=== PATIENT | female | born 1945 | race Caucasian/White ===

== ENCOUNTER → 2017-12-13 12:42 | Outpatient (CLI) | payer MEDICARE, SELFPAY ==
--- NOTE | 2017-12-13 12:46 | CT_ITS ---
STUDY: CT CHEST WITHOUT CONTRAST REASON FOR EXAM: Female, 72 years old. History of breast cancer RADIATION DOSAGE (If Supplied By Facility): CTDIvol = ( 13.37 ) mGy, DLP = ( 441.14 ) mGycm TECHNIQUE: Transaxial imaging was performed without the administration of intravenous contrast material. Individualized dose optimization techniques were used for this CT. COMPARISON: September 05, 2017 FINDINGS: There is minor atelectasis within the dependent portion of the lungs. There is mild round atelectasis within the posterior medial segment of the right lower lobe. Tiny calcified granuloma in the right lung base. There is no demonstrated pleural abnormality. The heart is enlarged and there is multivessel coronary artery calcification.. Normal mediastinum. Multiple bilateral calcified hilar nodes. Normal unenhanced pulmonary arteries. Atherosclerotic changes of the aorta. There is aneurysmal dilatation of proximal aorta measuring approximately 4.6 x 4.35 cm. Dorsal spine demonstrates moderate spondylosis. Postsurgical changes status post right mastectomy Multiple granulomatous calcifications are seen within the spleen.. No significant change since previous study CT/Chest without Contrast IMPRESSION: Persistent round atelectasis in the posterior medial segment of the right lower lobe. Old granulomatous disease. No evidence to suggest presence of metastatic disease status post right mastectomy Electronically Signed: Olvin Bradley MD at 21:39 EST , Service support ,
--- NOTE | 2017-12-13 15:35 | RAD_ITS ---
STUDY: X-RAY - LEFT KNEE REASON FOR EXAM: Female, 72 years old. Pain TECHNIQUE: 4 view(s) of the knee. COMPARISON: None. FINDINGS: Normal visualized distal femur. Normal visualized proximal tibia and fibula. Normal proximal tibiofibular articulation. Mildly narrowed medial femorotibial compartment. Normal lateral femorotibial compartment. Normal patellofemoral articulation. The soft tissue structures are unremarkable. RAD/Knee 4 or More Views IMPRESSION: Mild degenerative changes. No evidence for acute fracture Electronically Signed: Olvin Bradley MD at 16:24 EST , Service support ,
--- NOTE | 2017-12-13 15:35 | RAD_ITS ---
STUDY: X-RAY - ABDOMEN/PELVIS REASON FOR EXAM: Female, 72 years old. Pain and distention TECHNIQUE: 3 images COMPARISON: None. FINDINGS: Normal visualized lung bases. There is an unremarkable bowel gas pattern. There is no demonstrated free abdominal air. The visualized liver, spleen and kidneys are grossly normal in size and morphology. There are surgical clips in left upper and left lower quadrants. There are postsurgical changes of the lumbar spine. RAD/Abd Inc Decub and/or Erect IMPRESSION: Nonspecific abdomen Electronically Signed: Olvin Bradley MD at 16:26 EST , Service support ,
== END ==
PROVIDERS: Family Provider Family Medicine Geriatric Medicine; PCP Family Medicine Geriatric Medicine; Visit Provider Nurse Practitioner Acute Care
DX: R91.8 Other nonspecific abnormal finding of lung field (principal); K59.00 Constipation, unspecified; M17.12 Unilateral primary osteoarthritis, left knee
CPT/HCPCS: 71250; 73564; 74019

== ENCOUNTER 2018-01-10 10:30 | Day surgery (SDC) | payer MEDICARE, SELFPAY ==
--- NOTE | 2018-01-08 13:14 | EKG12_ITS ---
Test Reason : PRE OP Blood Pressure : / mmHG Vent. Rate : 067 BPM Atrial Rate : 067 BPM P-R Int : 152 ms QRS Dur : 092 ms QT Int : 416 ms P-R-T Axes : 051 -06 017 degrees QTc Int : 439 ms Sinus rhythm with occasional Premature ventricular complexes Otherwise normal ECG Confirmed by SP SWAIN, OLIVE ([id number]), publication editor MILES DAWSON ([id number]) on 01/09/2018 1:16:17 PM Referred By: Ugo Tabor Confirmed By:OLIVE SNOWDEN MD
[2018-01-08 15:40] LABS: Hematocrit 31.2 % (37-47); Hemoglobin 9.6 g/dl (12.0-15.0); Mean Corp Hgb Conc 30.8 g/gl (32-36); Mean Corpuscular Hgb 25.5 pg (27.0-32.0); Mean Corpuscular Volume 82.8 fL (81-99); Mean Platelet Vol. 12.1 fl (6.2-12.0); Platelet Count 310 K/mm3 (150-450); RBC Distribution Width CV 18.2 % (11.6-14.6); RBC Distribution Width SD 53.4 fl (35.1-43.9); Red Blood Count 3.77 M/mm3 (4.2-5.4); White Blood Count 10.4 K/mm3 (4.4-11.0)
[2018-01-08 15:47] LABS: Partial Thromboplast Time 24.5 Seconds (24.1-36.2); Prothrombin Time (Protime)PT. 12.7 SECONDS (11.7-14.9)
[2018-01-08 15:48] LABS: Scan Indicated on CBC? Y/N NO
[2018-01-08 16:23] LABS: Thyroid Stim Hormone (TSH) 2.27 uIU/mL (0.358-3.74)
[2018-01-10] VITALS (9 sets, daily range): BP systolic 141–180; BP diastolic 74–92; PULSE 65–76; RESP 16–22; TEMP 36.3–36.8; O2SAT 85–95; BMI 32.9
[2018-01-10 11:11] LABS: Bedside Glucose 106 mg/dL (70-110)
--- NOTE | 2018-01-10 12:55 | BREAST_PTH ---
PATIENT: JOYCE DAUGHERTY [place] [facility] [place][id number] AGE/SX: 72/F ROOM: RE01/10/[address]: Dr. Ugo Tabor MD : 1945 BED: DIS: 01/10/2018 SPEC #: [id number] RECD: 01/10/18 15:47 STATUS: SHANTA AMANDA #: [id number] CESAR: 01/10/18 12:[address]: Ugo Tabor DEPT: SURGICAL PATHOLOGY RECD BY: Jatinder Samuel ENTERED: 01/11/18 11:58 SP TYPE: BREAST OTHR DR: Dr. Jorge Linares MD Tissues: Right breast, NOS Procedures: Surgery Specimen Level IV HEADER OPERATION: Right chest seroma debridement/drainage PRE-OP DIAGNOSIS: Postoperative seroma right breast; CA right breast TISSUE SUBMITTED: Old scar, seroma cavity right breast MICROSCOPIC DIAGNOSIS Old scar, seroma cavity right breast: Fragments of fibroadipose and skeletal muscle tissue with focal fat necrosis, chronic inflammation, foreign body giant cell reaction and granulation tissue reaction, clinically seroma cavity. Skin, dermal fibrosis consistent with scar. SJ:israel 01/14/18 MICROSCOPIC DESCRIPTION Slides are reviewed. GROSS DESCRIPTION Received in fixative is one container labeled with the patient's name and designated old scar, right breast. The specimen consists of multiple irregular fragments of walker-yellow fibrofatty tissue ranging in size from 1.2 cm to 14 cm. The larger fragment consists of a well-healed cutaneous scar with skin and attached fibrofatty tissue. Serial sections do not reveal mass lesions. Medical Device Sales Consultant sections are submitted in four cassettes. / AM:israel 01/11/18 TC:5 CPT: 74500
--- NOTE | 2018-01-10 14:49 | PCM.OPRPT ---
Problem List (1) Seroma complicating a procedure Status: Acute Report of Operation Date of Procedure: 01/10/18 Pre-Operative Diagnosis: Postmastectomy right chest seroma Post-Operative Diagnosis: Same Surgery/Procedure Performed:: Right chest wall seroma debridement Description of Surgical Findings:: Timeout and informed consent was obtained. 72-year-old female was taken out from. Based upon the table. General general anesthesia. Ancef 2 g given intravenous preoperatively. The right chest were sterilely prepped and draped. The right arm was placed at right angles to the table and carefully protected with soft roll. The previous right mastectomy incision was transversely elliptically completely excised. Seroma fluid was collected and sent for Gram stain culture and sensitivity. The entire incision was reopened. The seroma lining was then sharply excised using majority electrocautery. The vast majority of the seroma lining was excised and were not possible it was then definitively cauterized. Hemostasis was intact. Blood loss was minimal. The entire space measured approximately 20 x 15 cm. Then a stab incision was made inferior lateral to the wound. A 15 round ROSIE drain was exited and secured there with interrupted 3-0 nylon. The superior and inferior skin flaps were then approximated to the chest wall with multiple interrupted 3-0 Vicryl sutures. The axillary area was treated with topical Tisseel. All portions of the wound were treated with Aramis. The subdermal tissues continue to be approximated with interrupted 3-0 Vicryl. Skin edges with the same. Steri-Strips Telfa soft roll dressing applied. Sponge instrument and needle counts were reported the surgeon to be correct. Blood loss minimal specimens include the skin scar and these debrided seroma lining. There were no apparent complications she was taken to the recovery satisfactory condition. Drains #15 ROSIE round Specimens include the skin scar and seroma cavity Blood loss minimal Ugo Tbaor M.D., F.A.C.S. Tisseel was used was fibrin sealant 2 mm V and [id number] with an expiration date of 01/02/2019. There is still used was lot #[id number]. Reference number NS [id number] and expiry date of September 24, 2022 Type of Anesthesia:: General
--- NOTE | 2018-01-10 14:53 | OP.PCM_ITS ---
Problem List (1) Seroma complicating a procedure Status: Acute Report of Operation Date of Procedure: 01/10/18 Pre-Operative Diagnosis: Postmastectomy right chest seroma Post-Operative Diagnosis: Same Surgery/Procedure Performed:: Right chest wall seroma debridement Description of Surgical Findings:: Timeout and informed consent was obtained. 72-year-old female was taken out from. Based upon the table. General general anesthesia. Ancef 2 g given intravenous preoperatively. The right chest were sterilely prepped and draped. The right arm was placed at right angles to the table and carefully protected with soft roll. The previous right mastectomy incision was transversely elliptically completely excised. Seroma fluid was collected and sent for Gram stain culture and sensitivity. The entire incision was reopened. The seroma lining was then sharply excised using majority electrocautery. The vast majority of the seroma lining was excised and were not possible it was then definitively cauterized. Hemostasis was intact. Blood loss was minimal. The entire space measured approximately 20 x 15 cm. Then a stab incision was made inferior lateral to the wound. A 15 round ROSIE drain was exited and secured there with interrupted 3-0 nylon. The superior and inferior skin flaps were then approximated to the chest wall with multiple interrupted 3-0 Vicryl sutures. The axillary area was treated with topical Tisseel. All portions of the wound were treated with Aramis. The subdermal tissues continue to be approximated with interrupted 3-0 Vicryl. Skin edges with the same. Steri- Strips Telfa soft roll dressing applied. Sponge instrument and needle counts were reported the surgeon to be correct. Blood loss minimal specimens include the skin scar and these debrided seroma lining. There were no apparent complications she was taken to the recovery satisfactory condition. Drains #15 ROSIE round Specimens include the skin scar and seroma cavity Blood loss minimal Ugo Tabor M.D., F.A.C.S. Tisseel was used was fibrin sealant 2 mm V and [id number] with an expiration date of 01/02/2019. There is still used was lot #[id number]. Reference number NS [id number] and expiry date of September 24, 2022 Type of Anesthesia:: General
--- NOTE | 2018-01-10 14:54 | PCM.DC.GS ---
Discharge Diet: Light diet - advance as tolerated - if you have questions about your diet instructions, please talk to you doctor. Discharge Activity: May Not Drive - for 1 week or while taking narcotic pain medicine. May shower in (days): 6 - After drain is removed Lifting Restrictions: 10 pounds Call your doctor if your incision/area has: Continuous Slow Oozing, Sudden Increased Bleeding, Increased Pain/ Swelling, Increased Redness, Foul Smelling Discharge Call your doctor if you observe: Fever of 101 or Higher Suture Line Care: Avoid Pulling/Pushing, Avoid Pinching/Bending Additional Dressing/Incision Instructions:: You may change the dressing daily and cleanse the drain site with a Q-tip and peroxide and then apply dry gauze. Allergies/Adverse Reactions: Allergies Iodinated Contrast- Oral and IV Dye Allergy (Verified 01/01/18 15:27) Hives zolpidem [From Ambien] Adverse Reaction (Severe, Verified 01/01/18 15:27) Other severe confusion Medications to take at Discharge Metformin HCl [Glucophage] 500 mg PO BIDCM 09/08/13 Metoprolol Tartrate [Lopressor (beta dandre)] 25 mg PO DAILY 09/08/13 Montelukast [Singulair] 10 mg PO QHS 09/08/13 Aspirin E.C. [Ecotrin] 81 mg PO QHS 01/30/14 Nilotinib HCl [Tasigna] 300 mg PO BID 01/30/14 Potassium Chloride [K-Dur] 20 meq PO BID 11/05/16 diclofenac potassium 50 mg tablet 50 mg PO BID 10/23/17 levothyroxine 112 mcg capsule 112 mcg PO DAILY cap 10/23/17 pregabalin 300 mg capsule 200 mg PO BID cap 12/14/17 Atorvastatin Calcium [Lipitor] 80 mg PO QHS 01/01/18 Calcium Carbonate [Calcium] 600 mg PO DAILY 01/01/18 Ergocalciferol [Vitamin D] 50,000 unit PO DAILY 01/01/18 Ferrous Gluconate [Iron] 150 mg PO DAILY 01/01/18 Furosemide [Lasix] 20 mg PO DAILY 01/01/18 Levomefolate/B6/B12/Algal Oil [Metanx Capsule] 1 each PO DAILY 01/01/18 Omeprazole 40 mg PO DAILY 01/01/18 Primary Care Physician: Jorge Linares Chi, MD [Primary Care Provider] - Please Follow Up With: Ugo Tabor MD - [phone] When: Call to make an appointment to be seen on Sunday please
[2018-01-10 15:26] LABS: Bedside Glucose 114 mg/dL (70-110)
[2018-01-10] MEDS: Ipratropium/Albuterol Sulfate 3 ML AMPUL.NEB INHALATION (16:00)
== END 2018-01-10 18:04 | disposition home or self-care (01) ==
LOC: SDC 10:31 → AC 10:31
PROVIDERS: Family Provider Family Medicine Geriatric Medicine; PCP Family Medicine Geriatric Medicine; Visit Provider Surgery
PROC: (CPT 19020; principal; 2018-01-10 12:45)
DX: L76.34 Postprocedural seroma of skin and subcutaneous tissue following other procedure (principal); C92.10 Chronic myeloid leukemia, BCR/ABL-positive, not having achieved remission; Z85.3 Personal history of malignant neoplasm of breast; Z90.13 Acquired absence of bilateral breasts and nipples; I12.9 Hypertensive chronic kidney disease with stage 1 through stage 4 chronic kidney disease, or unspecified chronic kidney disease; E11.22 Type 2 diabetes mellitus with diabetic chronic kidney disease; N18.3 Chronic kidney disease, stage 3 (moderate); E11.65 Type 2 diabetes mellitus with hyperglycemia; E11.42 Type 2 diabetes mellitus with diabetic polyneuropathy; Z79.84 Long term (current) use of oral hypoglycemic drugs; M19.90 Unspecified osteoarthritis, unspecified site; E66.9 Obesity, unspecified; Z68.34 Body mass index [BMI] 34.0-34.9, adult; E03.9 Hypothyroidism, unspecified; G47.33 Obstructive sleep apnea (adult) (pediatric); E78.00 Pure hypercholesterolemia, unspecified; K21.9 Gastro-esophageal reflux disease without esophagitis; D64.9 Anemia, unspecified; Z79.82 Long term (current) use of aspirin; J45.909 Unspecified asthma, uncomplicated; I71.9 Aortic aneurysm of unspecified site, without rupture; Z79.899 Other long term (current) drug therapy
CPT/HCPCS: 19020; 36415; 82962; 84443; 85027; 85610; 85730; 87070; 87075; 87205; 88305; 88307; 93005; 94640; J3010; J7120; J2405

== ENCOUNTER → 2018-01-21 10:07 | Outpatient (CLI) | payer MEDICARE, SELFPAY | PROVIDERS: Family Provider Family Medicine Geriatric Medicine; PCP Family Medicine Geriatric Medicine; Visit Provider Surgery | DX: L76.34 Postprocedural seroma of skin and subcutaneous tissue following other procedure (principal) | CPT/HCPCS: 87070; 87075; 87077; 87186; 87205 ==

== ENCOUNTER → 2018-02-08 12:40 | Outpatient (CLI) | payer MEDICARE, SELFPAY ==
--- NOTE | 2018-02-08 12:43 | RAD_ITS ---
STUDY: X-RAY CHEST REASON FOR EXAM: Female, 73 years old. Shortness of breath. TECHNIQUE: PA and lateral views of the chest. COMPARISON: CT of the chest dated December 13, 2017. FINDINGS: The lungs are expanded. There is interstitial thickening present in both lungs. Sequela of radiation therapy. Appears be heterogeneous groundglass attenuation and curvilinear opacities of the left lung base. There is no demonstrated pleural abnormality. There is mild cardiac enlargement. There are calcified mediastinal and hilar lymph nodes. Normal visualized pulmonary arteries. There is atherosclerotic calcification of the aortic arch with tortuosity. There is demineralization of the osseous structures. There is an increased kyphosis of the thoracic spine. Patient has had previous surgery of the lumbar spine. Normal visualized ribs, clavicles, and shoulders. Surgical clips are visible in the epigastric area. There are also surgical clips within the left breast. RAD/Chest PA and Lateral IMPRESSION: 1. Chronic left basilar opacities, similar to previous CT. This is probably related to pulmonary fibrosis and possible sequela of radiation therapy. 2. No radiographic evidence of acute cardiopulmonary disease. Electronically Signed: Niharika Kimball MD at 9:32 EDT , Service support ,
[2018-02-08 13:37] LABS: Absolute Lymphocyte Count 2.53 X10^3/ul (0.83-4.51); Absolute Neutrophil Count 5.5 X10^3/uL (2.0-7.7); Basophil# 0.05 X10^3/uL; Basophil% 0.5 % (0-1); Eosinophil# 0.44 X10^3/uL; Eosinophils% 4.7 % (0-5); Hematocrit 32.7 % (37-47); Lymphocyte # 2.53 X10^3/ul (4.0); Lymphocyte % 26.9 % (19-41); Mean Corp Hgb Conc 30.6 g/gl (32-36); Mean Corpuscular Hgb 24.9 pg (27.0-32.0); Mean Corpuscular Volume 81.5 fL (81-99); Mean Platelet Vol. 11.3 fl (6.2-12.0); Monocyte# 0.79 X10^3/uL; Monocyte% 8.4 % (0-10); Neutrophil # 5.53 X10^3/uL (2.7-7.7); Platelet Count 305 K/mm3 (150-450); RBC Distribution Width CV 19.4 % (11.6-14.6); RBC Distribution Width SD 57.1 fl (35.1-43.9); Red Blood Count 4.01 M/mm3 (4.2-5.4); White Blood Count 9.4 K/mm3 (4.4-11.0)
[2018-02-08 13:38] LABS: POSITIVE COUNT NO; POSITIVE DIFFERENTIAL NO; POSITIVE MORPHOLOGY NO
[2018-02-08 13:49] LABS: Prothrombin Time (Protime)PT. 12.7 SECONDS (11.7-14.9)
[2018-02-08 13:58] LABS: Anion Gap 7 (5-15); BUN 25 mg/dL (7-18); BUN/Creat Ratio 15.5 RATIO (10-20); Calcium,Total 8.8 mg/dL (8.5-10.1); Chloride 112 mmol/L (98-107); Creatinine, Serum 1.61 mg/dL (0.55-1.02); EST Glomerular Filtration Rate 33 mL/min (>60); Est Glom Filt Rate - Afr Amer 40 mL/min (>60); Glucose 98 mg/dL (74-106); Potassium 4.4 mmol/L (3.5-5.1); Sodium Level 146 mmol/L (136-145)
== END ==
PROVIDERS: Family Provider Family Medicine Geriatric Medicine; PCP Family Medicine Geriatric Medicine; Visit Provider Internal Medicine Cardiovascular Disease
DX: I77.810 Thoracic aortic ectasia (principal); I35.1 Nonrheumatic aortic (valve) insufficiency; I10 Essential (primary) hypertension
CPT/HCPCS: 36415; 71046; 80048; 85025; 85610

== ENCOUNTER → 2018-02-12 14:36 | Outpatient (CLI) | payer MEDICARE, SELFPAY ==
--- NOTE | 2018-02-12 14:37 | ECHOD_ITS ---
Reason For Study: AV disorder Procedure This was a 2D Doppler, Color Flow transthoracic echocardiogram. Exam performed in department. Left Ventricle Normal size and thickness. The estimated ejection fraction is 55 %. Stage 1 diastolic dysfunction. No regional wall motion abnormalities noted. There is mild global hypokinesis of the left ventricle. Right Ventricle Normal size and thickness. Normal systolic function. Atria Normal left atrium. Normal right atrium. Normal atrial septum. Mitral Valve The mitral valve is structurally normal. No prolapse or stenosis seen. Trivial mitral valve insufficiency. Tricuspid Valve Normal tricuspid valve. Trivial tricuspid valve insufficiency. Right ventricular systolic pressure estimated to be 27 mmHg. Aortic Valve Trisinus/trileaflet aortic valve. Mild diffuse aortic valve thickening. There is no aortic stenosis. Mild (1+) aortic valve insufficiency. Pulmonic Valve Normal pulmonic valve. Trivial pulmonic valve insufficiency. Great Vessels Normal aortic root. Normal arch. Normal inferior vena cava. Inferior vena cava collapse with sniff. Pericardium/Pleural No pericardial effusion. MMode/2D Measurements & Calculations LVIDd: 5.6 cm IVSd: 0.95 cm Ao root diam: 3.8 cm LVIDs: 3.9 cm LVPWd: 1.1 cm LA dimension: 4.2 cm RVDd: 2.2 cm FS: 30.2 % LAV(MOD-bp): 66.0 ml LA A4 area: 20.8 cm2 RA A4 area: 10.7 cm2 LAV(MOD-bp) Indexed: 36.7 ml/m2 LAV(MOD-sp2): 64.5 ml LAV(MOD-sp4): 66.3 ml Doppler Measurements & Calculations MV E max marino: 86.4 cm/sec Lat Peak E' Marino: 5.1 cm/sec Med Peak E' Marino: 5.4 cm/sec MV A max marino: 109.2 cm/sec E/E' lat: 16.9 E/E' med: 15.9 MV E/A: 0.79 Ao V2 max: 150.2 cm/sec AI max marino: 408.7 cm/sec LV V1 max: 102.3 cm/sec Ao max P.0 mmHg AI max P.9 mmHg LV V1 max P.2 mmHg AI dec slope: 196.9 cm/sec2 AI P1/2t: 608.1 msec PA V2 max: 84.2 cm/sec TR max marino: 235.7 cm/sec TR max P.2 mmHg Interpretation Summary The estimated ejection fraction is 55 %. Stage 1 diastolic dysfunction. There is mild global hypokinesis of the left ventricle. Trivial mitral valve insufficiency. Trivial tricuspid valve insufficiency. Right ventricular systolic pressure estimated to be 27 mmHg. Mild (1+) aortic valve insufficiency. Compared to echo report dated 07/13/2017, no appreciable changes noted. Aortic root has remained the same. Ordering Physician: Rustam Joseph Referring Physician: Jorge Linares Chi Performed By: Socorro Turpin RDCS, RVT
== END ==
PROVIDERS: Family Provider Family Medicine Geriatric Medicine; PCP Family Medicine Geriatric Medicine; Visit Provider Internal Medicine Cardiovascular Disease
DX: I35.1 Nonrheumatic aortic (valve) insufficiency (principal)
CPT/HCPCS: 93306

== ENCOUNTER → 2018-02-15 07:18 | Day surgery (SDC) | payer MEDICARE, SELFPAY ==
[2018-02-14 08:50] VITALS: BMI 32.4
[2018-02-15 10:45] LABS: Blood Gas Specimen Type VEN; VBG BASE EXCESS -2 mmol/L (-1.0-3.5); VBG Bicarbonate 22 mmol/L (22-26); VBG Oxygen Content 23 mmol/L (23-33); VBG PO2 33 mmHg (25-40); VBG SO2 66 % (50-70); VBG pCO2 32.8 mmHg (41-51); VBG pH 7.43 (7.32-7.42)
[2018-02-15 10:46] LABS: Base Excess -2 mmol/L (-2 to +2); Blood Gas Specimen Type ART; PO2 36 mmHG (75-100); SO2 72 % (95-99); Total Carbon Dioxide 23 mmol/L; pCO2 33.2 mmHg (35-45); pH 7.43 (7.35-7.45)
[2018-02-15 10:46] LABS: Base Excess -3 mmol/L (-2 to +2); Bicarbonate 21.5 mmol/L (22-26); Blood Gas Specimen Type ART; PO2 56 mmHG (75-100); SO2 90 % (95-99); Total Carbon Dioxide 22 mmol/L; pCO2 30.9 mmHg (35-45); pH 7.45 (7.35-7.45)
--- NOTE | 2018-02-15 15:19 | CL.D_ITS ---
Patient Name: JOYCE MONK Study Date: 02/15/2018 Performing: Rustam Joseph MD Ht: 62.99 inches 160 cm : 1945 Wt: 182.98 lbs 83 kg Age: 73 Gender: female BSA: 1.86 PROCEDURE(S) PERFORMED BI02-MSX/LHC/COR/LV CLINICAL PROFILE AND INDICATIONS Indications: Valvular Disease, LV Dysfunction Heart Failure: NYHA Class: 2 Stress/Imaging Stress Echocardiogram: Yes Result: NegativeStress Echocardiogram: Negative Angina Classification Anginal Classification w/in 2 Weeks: No symptoms CAD Presentations: Other: dyspnea on exertion. Comorbidities/Risk Factors: Hypertension Dyslipidemia CONCLUSIONS Normal coronary arteries Global LV systolic dysfunction- Mild The patient has normal pulmonary hemodynamics. RECOMMENDATIONS PFTs to evaluate VELEZ and low O2. Management as per referring Dumbwaiter Operator DESCRIPTION OF PROCEDURE The patient arrived to the procedure lab. The risks and benefits of the procedure as well as a full d escription of our services here and current unavailability of surgical backup were fully explained to the patient and/or their significant other prior to the catheterization. The Timeout was completed, verifying the correct patient and procedure. The patient's procedural site was prepped and draped in the usual fashion. Local anesthetic was given subcutaneously to right groin region with Lidocaine 2%. Using a modified Seldinger technique, arterial access was obtained via the right femoral artery, a 4 Fr sheath was inserted Venous access was obtained via the right femoral vein, a 7Fr sheath was insert ed. A 7Fr thermal dilution catheter was inserted and right heart pressures were recorded, it was then advanced to PA position for cardiac outputs. Thermal dilution cardiac outputs were then recorded. O2 saturations were then obtained. The Thermal dilution catheter was then removed. Left Ventriculograph y was performed in JOHNSON projection using a 4 Fr. Pigtail catheter. LV to AO pullback pressures were th en recorded. Simultaneous pressures were then recorded. Left Coronary Artery selective angiography wa s performed in multiple views using a 4 Fr. JL5 catheter. Right Coronary Artery selective angiography was then performed in multiple views using a 4 Fr. 3DRC catheter.The arterial sheath was pulled and manual compression applied until hemostasis is achieved.. The venous sheath was then pulled and manua l compression applied until hemostasis achieved CORONARY ANGIOGRAPHY DOMINANCE: Right Dominant LEFT HEART ASSESSMENT Left Ventricular Ejection Fraction: by LV Gram 45-50 % Global Hypokinesis - Mild Depressed Left Ventricular systolic function Elevated Left Ventricular End Diastolic Pressure RIGHT HEART ASSESSMENT Thermal CO: 6.06 Thermal CI: 3.26 Emmanuelle CO: 8.66 Emmanuelle CI: 4.66 PW: 14 PA: 32/15 22 RV: 31/5 8 RA: 08/15 7 PVR: 106 SVR: 1241 LEFT MAIN: Angiographically normal LEFT ANTERIOR DECENDING ARTERY: Angiographically normal CIRCUMFLEX ARTERY: Angiographically normal RIGHT CORONARY ARTERY: Angiographically normal COMPLICATIONS No Complications PROCEDURE MEDICATIONS Oxygen: 2 L/min via nasal cannula Benadryl 25 mg IV @ 02/15/2018 10:15:42 Pepcid 20 mg IV 02/15/2018 10:15:55 Solu-cortef 100 mg IV 02/15/2018 10:16:13 SUMMARY OF HEMODYNAMIC DATA Time AIR REST ECG 07:42:03 RA 08/15 (7) SV 10:27:43 RV 31/5, 8 10:27:55 PW (14) PV 10:28:26 PA 32/15 (22) PA 10:28:35 LV 150/-12, 9 10:33:07 LV 146/-12, 10 10:33:15 LV 142/-13, 9 10:34:00 PW 17/16 (11) 10:34:00 LV 140/-10, 12 10:34:29 RV 32/4, 7 10:34:29 LV 144/-7, 15 10:35:32 LVp 143/-7, 13 10:35:36 AOp 147/68 (99) 10:35:41 AO 127/79 (101) SA 10:37:21 Type SV CO (l/m) CI (l/m/ HR Time AIR REST Thermal 74.80 6.06 3.26 81 07:42:03 Emmanuelle 106.90 8.66 4.66 81 07:42:03 Label % O2 Pres/Loc Time AIR REST PA 69 PA 10:42:25 AO 90 PV 10:42:47 Signed By Rustam Joseph MD On 02/15/2018 15:19:19 Rustam Joseph MD
== END ==
LOC: CLSP 07:19
PROVIDERS: Family Provider Family Medicine Geriatric Medicine; PCP Family Medicine Geriatric Medicine; Visit Provider Internal Medicine Cardiovascular Disease
DX: I51.9 Heart disease, unspecified (principal); I12.9 Hypertensive chronic kidney disease with stage 1 through stage 4 chronic kidney disease, or unspecified chronic kidney disease; N18.3 Chronic kidney disease, stage 3 (moderate); E11.22 Type 2 diabetes mellitus with diabetic chronic kidney disease; E11.65 Type 2 diabetes mellitus with hyperglycemia; E78.5 Hyperlipidemia, unspecified; I77.810 Thoracic aortic ectasia; I35.1 Nonrheumatic aortic (valve) insufficiency; K21.9 Gastro-esophageal reflux disease without esophagitis; E78.00 Pure hypercholesterolemia, unspecified; E03.9 Hypothyroidism, unspecified; K58.9 Irritable bowel syndrome, unspecified; C93.10 Chronic myelomonocytic leukemia not having achieved remission; C50.919 Malignant neoplasm of unspecified site of unspecified female breast; G47.33 Obstructive sleep apnea (adult) (pediatric); M19.90 Unspecified osteoarthritis, unspecified site; R06.09 Other forms of dyspnea; Z79.82 Long term (current) use of aspirin; Z79.84 Long term (current) use of oral hypoglycemic drugs; Z79.899 Other long term (current) drug therapy
CPT/HCPCS: 82803; 93460; J7030; Q9967; C1751; C1769; C1894

== ENCOUNTER → 2018-02-28 13:42 | Outpatient (CLI) | payer MEDICARE, SELFPAY ==
[2018-02-28 16:32] LABS: Absolute Lymphocyte Count 2.31 X10^3/ul (0.83-4.51); Absolute Neutrophil Count 8.5 X10^3/uL (2.0-7.7); Basophil# 0.07 X10^3/uL; Basophil% 0.6 % (0-1); Eosinophil# 0.64 X10^3/uL; Hematocrit 30.9 % (37-47); Hemoglobin 9.6 g/dl (12.0-15.0); Lymphocyte # 2.31 X10^3/ul (4.0); Lymphocyte % 18.2 % (19-41); Mean Corp Hgb Conc 31.1 g/gl (32-36); Mean Corpuscular Hgb 25.1 pg (27.0-32.0); Mean Corpuscular Volume 80.9 fL (81-99); Monocyte# 1.09 X10^3/uL; Monocyte% 8.6 % (0-10); Neutrophil # 8.49 X10^3/uL (2.7-7.7); Neutrophil % 66.7 % (47-70); Platelet Count 323 K/mm3 (150-450); RBC Distribution Width CV 19.8 % (11.6-14.6); RBC Distribution Width SD 55.9 fl (35.1-43.9); Red Blood Count 3.82 M/mm3 (4.2-5.4); White Blood Count 12.7 K/mm3 (4.4-11.0)
[2018-02-28 16:57] LABS: POSITIVE COUNT NO; POSITIVE DIFFERENTIAL NO; POSITIVE MORPHOLOGY NO
[2018-02-28 17:05] LABS: AST(SGOT) 28 U/L (15-37); Alanine Aminotransfer ALT/SGPT 45 U/L (13-56); Albumin, Serum 3.5 g/dL (3.2-5.0); Alkaline Phosphatase 86 U/L (45-117); Anion Gap 11 (5-15); BUN 28 mg/dL (7-18); BUN/Creat Ratio 15.9 RATIO (10-20); Calcium,Total 9.1 mg/dL (8.5-10.1); Chloride 107 mmol/L (98-107); Creatinine, Serum 1.76 mg/dL (0.55-1.02); EST Glomerular Filtration Rate 30 mL/min (>60); Est Glom Filt Rate - Afr Amer 36 mL/min (>60); Globulin 3.5 g/dL (2.2-4.2); Glucose 96 mg/dL (74-106); Iron 23 ug/dL (50-170); Iron Binding Capacity,Total 432 ug/dL (250-450); Potassium 4.4 mmol/L (3.5-5.1); Sodium Level 141 mmol/L (136-145)
[2018-03-01 08:23] LABS: Vitamin D,25 Hydroxy 29.1 ng/mL (29.95-100.01)
== END ==
LOC: POLAB3 13:44
PROVIDERS: Family Provider Family Medicine Geriatric Medicine; PCP Family Medicine Geriatric Medicine; Visit Provider Family Medicine Geriatric Medicine
DX: E11.9 Type 2 diabetes mellitus without complications (principal); E55.9 Vitamin D deficiency, unspecified; I10 Essential (primary) hypertension; D64.9 Anemia, unspecified
CPT/HCPCS: 36415; 80053; 82306; 83540; 83550; 84443; 85025

== ENCOUNTER → 2018-03-28 13:31 | Outpatient (CLI) | payer MEDICARE, SELFPAY ==
[2018-03-28 16:55] LABS: Absolute Lymphocyte Count 1.68 X10^3/ul (0.83-4.51); Absolute Neutrophil Count 7.4 X10^3/uL (2.0-7.7); Basophil# 0.04 X10^3/uL; Basophil% 0.4 % (0-1); Eosinophil# 0.67 X10^3/uL; Eosinophils% 6.2 % (0-5); Hematocrit 30.9 % (37-47); Hemoglobin 9.5 g/dl (12.0-15.0); Lymphocyte # 1.68 X10^3/ul (4.0); Lymphocyte % 15.5 % (19-41); Mean Corp Hgb Conc 30.7 g/gl (32-36); Mean Corpuscular Hgb 26.2 pg (27.0-32.0); Mean Corpuscular Volume 85.1 fL (81-99); Mean Platelet Vol. 11.9 fl (6.2-12.0); Monocyte# 0.98 X10^3/uL; Monocyte% 9.1 % (0-10); Neutrophil # 7.37 X10^3/uL (2.7-7.7); Neutrophil % 68.2 % (47-70); Platelet Count 291 K/mm3 (150-450); RBC Distribution Width CV 23.4 % (11.6-14.6); RBC Distribution Width SD 68.2 fl (35.1-43.9); Red Blood Count 3.63 M/mm3 (4.2-5.4); White Blood Count 10.8 K/mm3 (4.4-11.0)
[2018-03-28 16:58] LABS: Differential Indicated SCAN CRITERIA MET; POSITIVE COUNT NO; POSITIVE DIFFERENTIAL NO; POSITIVE MORPHOLOGY YES
[2018-03-28 17:01] LABS: Iron 36 ug/dL (50-170); Iron Binding Capacity,Total 262 ug/dL (250-450)
[2018-03-28 17:27] LABS: Differential Comment SCANNED
== END ==
PROVIDERS: Family Provider Family Medicine Geriatric Medicine; PCP Family Medicine Geriatric Medicine; Visit Provider Family Medicine Geriatric Medicine
DX: D50.9 Iron deficiency anemia, unspecified (principal)
CPT/HCPCS: 36415; 83540; 83550; 85025

== ENCOUNTER → 2018-04-04 10:56 | Outpatient (CLI) | payer MEDICARE, SELFPAY | LOC: LABSPEC 10:58 | PROVIDERS: Family Provider Family Medicine Geriatric Medicine; PCP Family Medicine Geriatric Medicine; Visit Provider Physician Assistant | DX: N61.1 Abscess of the breast and nipple (principal) | CPT/HCPCS: 87070; 87075; 87077; 87186; 87205 ==

== ENCOUNTER → 2018-06-12 15:02 | Outpatient (CLI) | payer MEDICARE, SELFPAY ==
[2018-06-12 17:41] LABS: Absolute Lymphocyte Count 2.04 X10^3/ul (0.83-4.51); Basophil# 0.06 X10^3/uL; Basophil% 0.7 % (0-1); Eosinophil# 0.79 X10^3/uL; Eosinophils% 9.2 % (0-5); Hematocrit 35.9 % (37-47); Hemoglobin 11.4 g/dl (12.0-15.0); Lymphocyte # 2.04 X10^3/ul (4.0); Lymphocyte % 23.8 % (19-41); Mean Corp Hgb Conc 31.8 g/gl (32-36); Mean Corpuscular Hgb 28.6 pg (27.0-32.0); Monocyte# 0.67 X10^3/uL; Monocyte% 7.8 % (0-10); Neutrophil # 4.95 X10^3/uL (2.7-7.7); Neutrophil % 57.9 % (47-70); Platelet Count 211 K/mm3 (150-450); RBC Distribution Width CV 19.1 % (11.6-14.6); Red Blood Count 3.99 M/mm3 (4.2-5.4); White Blood Count 8.6 K/mm3 (4.4-11.0)
[2018-06-12 17:42] LABS: POSITIVE COUNT NO; POSITIVE DIFFERENTIAL NO; POSITIVE MORPHOLOGY NO
[2018-06-12 17:47] LABS: ALB/GLOB Ratio 1.1 RATIO (0.9-2.4); AST(SGOT) 18 U/L (15-37); Alanine Aminotransfer ALT/SGPT 29 U/L (13-56); Albumin, Serum 3.5 g/dL (3.2-5.0); Alkaline Phosphatase 67 U/L (45-117); Anion Gap 8 (5-15); BUN 19 mg/dL (7-18); Calcium,Total 8.6 mg/dL (8.5-10.1); Chloride 110 mmol/L (98-107); Creatinine, Serum 1.58 mg/dL (0.55-1.02); EST Glomerular Filtration Rate 34 mL/min (>60); Est Glom Filt Rate - Afr Amer 41 mL/min (>60); Globulin 3.1 g/dL (2.2-4.2); Glucose 94 mg/dL (74-106); Potassium 4.1 mmol/L (3.5-5.1); Protein, Total 6.6 g/dL (6.4-8.2); Sodium Level 145 mmol/L (136-145); Thyroid Stim Hormone (TSH) 1.77 uIU/mL (0.358-3.74)
[2018-06-12 19:47] LABS: Vitamin D,25 Hydroxy 29.6 ng/mL (29.95-100.01)
== END ==
LOC: POLAB3 15:03
PROVIDERS: Family Provider Family Medicine Geriatric Medicine; PCP Family Medicine Geriatric Medicine; Visit Provider Family Medicine Geriatric Medicine
DX: E11.9 Type 2 diabetes mellitus without complications (principal); E55.9 Vitamin D deficiency, unspecified; I10 Essential (primary) hypertension
CPT/HCPCS: 36415; 80053; 82306; 84443; 85025

== ENCOUNTER 2018-07-04 18:00 | Emergency (ER) | payer MEDICARE, SELFPAY ==
[2018-07-04 18:01] VITALS: BP 122/69; PULSE 67; RESP 21; TEMP 33.8; O2SAT 93; BMI 32.1
--- NOTE | 2018-07-04 19:48 | ED.VISSUMM ---
- ER Visit Summary Date of Service: 07/04/18 Chief Complaint: [Fall History of Present Illness: The patient is a 73 F [presents the emergency department with complaint of a fall that occurred approximately 4 PM. Patient states that she went out to the mailbox and stepped onto an uneven area in the alley causing her to lose her balance and fall forward. Patient was able to use her left hand to try to catch herself but her face did hit the ground. No loss of consciousness. Patient complains of pain to her left wrist and left shoulder. Patient sustained abrasions to her nose. Patient denies any head pain or neck pain. She denies any paresthesias. She denies any chest pain or shortness of breath. Patient is not on blood thinners other than a baby aspirin daily. Patient not had any vomiting. She denies any visual changes.] Physical Examination: [HEENT-PERRLA, EOMI. Cranial nerves II through XII grossly intact. TMs clear. Mucous membranes moist. No adenopathy. Patient has superficial abrasions to the nose however no significant tenderness to the nasal bone. There are no septal hematomas. Patient has no C-spine tenderness on palpation and she has normal active range of motion is painless. No other trauma to the head noted. Cardiovascular-regular rate and rhythm without murmur or ectopy Lungs-clear to auscultation, chest wall stable without crepitus or subcu emphysema Abdomen-normoactive bowel sounds, soft, nontender, no rebound or rigidity, no peritoneal signs. Extremities-intact ?4, normal range of motion, normal pulses. Left arm-patient has tenderness over the left wrist diffusely with some mild soft tissue swelling noted. Patient has pain with range of motion of flexion extension of the wrist. Patient also has some mild tenderness over the left anterior glenohumeral joint with pain with range of motion. She is neurovascular intact. No obvious deformity. Test Results: [X-rays ordered from triage of the left wrist and left shoulder were obtained which were negative for fractures.] Emergency Department Course and Treatment: [I discussed obtaining a CT scan of the brain without contrast given the patient's age and the fact she struck her face on the ground however patient states that she is without headache and does not feel it is necessary given that it has been over 3-1/2 hours since her injury. Patient is refusing the CT scan at this time and understands I cannot rule out intracranial hemorrhage. Patient was medicated with Adacel tetanus booster as she is unsure of her last tetanus shot. Patient was given a dose of Tylenol. Patient was given a sling and a left wrist splint.] Treatment Plan: [Patient to follow-up with primary care physician within next 3-5 days.] Disposition: [Discharged home in stable condition. Patient to return if headache, difficulty with balance or speech, or condition should worsen in any way.] Impression: [Mechanical fall Facial contusion Left wrist sprain Left shoulder sprain possible internal derangement] This note was generated with [employer] dictation software. It may contain incorrect words, spelling, and punctuation that were not noted in review of the chart prior to signing ED Disposition - Plan for ED Patient: Chief Complaint: Fall Referrals: Jorge Linares Chi, MD [Primary Care Provider] -
--- NOTE | 2018-07-04 19:52 | ED.DEP ---
ED Disposition - Plan for ED Patient: Chief Complaint: Fall Instructions: ED Contusion Face, ED Sprain Wrist, ED Sprain Shoulder Referrals: Jorge Linares Chi, MD [Primary Care Provider] - 3-5 Days
[2018-07-04] MEDS: Diphth,Pertuss(Acell),Tet Vac 0.5 ML Vial IM (20:05)
[2018-07-04] MEDS: Acetaminophen 325 MG Tablet 650 MG PO (20:05)
[2018-07-04 20:30] VITALS: BP 120/70; PULSE 70; RESP 16; O2SAT 94
== END 2018-07-04 20:30 | disposition home or self-care (01) ==
LOC: ED 19:52
PROVIDERS: Emergency Provider Emergency Medicine; Family Provider Family Medicine Geriatric Medicine; PCP Family Medicine Geriatric Medicine
DX: S00.33XA Contusion of nose, initial encounter (principal); S63.502A Unspecified sprain of left wrist, initial encounter; S43.402A Unspecified sprain of left shoulder joint, initial encounter; W18.39XA Other fall on same level, initial encounter; Y93.01 Activity, walking, marching and hiking; Y92.008 Other place in unspecified non-institutional (private) residence as the place of occurrence of the external cause; E11.9 Type 2 diabetes mellitus without complications; I71.9 Aortic aneurysm of unspecified site, without rupture; E78.00 Pure hypercholesterolemia, unspecified; Z79.82 Long term (current) use of aspirin; Z79.84 Long term (current) use of oral hypoglycemic drugs; Z79.899 Other long term (current) drug therapy
CPT/HCPCS: 73030; 73110; 90471; 90715; 99284

== ENCOUNTER → 2018-09-04 13:04 | Outpatient (CLI) | payer MEDICARE, SELFPAY ==
[2018-09-04 14:59] LABS: Absolute Lymphocyte Count 2.09 X10^3/ul (0.83-4.51); Absolute Neutrophil Count 7.9 X10^3/uL (2.0-7.7); Basophil# 0.08 X10^3/uL; Basophil% 0.7 % (0-1); Eosinophil# 0.93 X10^3/uL; Eosinophils% 7.7 % (0-5); Hematocrit 33.8 % (37-47); Hemoglobin 10.6 g/dl (12.0-15.0); Lymphocyte # 2.09 X10^3/ul (4.0); Lymphocyte % 17.3 % (19-41); Mean Corp Hgb Conc 31.4 g/gl (32-36); Mean Corpuscular Volume 89.2 fL (81-99); Mean Platelet Vol. 11.8 fl (6.2-12.0); Monocyte# 1.02 X10^3/uL; Monocyte% 8.5 % (0-10); Neutrophil # 7.88 X10^3/uL (2.7-7.7); Neutrophil % 65.2 % (47-70); POSITIVE COUNT NO; POSITIVE DIFFERENTIAL NO; POSITIVE MORPHOLOGY NO; Platelet Count 275 K/mm3 (150-450); RBC Distribution Width CV 15.8 % (11.6-14.6); RBC Distribution Width SD 50.7 fl (35.1-43.9); Red Blood Count 3.79 M/mm3 (4.2-5.4); White Blood Count 12.1 K/mm3 (4.4-11.0)
[2018-09-04 15:12] LABS: Vitamin D,25 Hydroxy 26.9 ng/mL (29.95-100.01)
[2018-09-04 15:17] LABS: AST(SGOT) 13 U/L (15-37); Alanine Aminotransfer ALT/SGPT 20 U/L (13-56); Albumin, Serum 3.3 g/dL (3.2-5.0); Alkaline Phosphatase 101 U/L (45-117); Anion Gap 8 (5-15); BUN 42 mg/dL (7-18); BUN/Creat Ratio 20.3 RATIO (10-20); Calcium,Total 8.7 mg/dL (8.5-10.1); Chloride 108 mmol/L (98-107); Creatinine, Serum 2.07 mg/dL (0.55-1.02); EST Glomerular Filtration Rate 25 mL/min (>60); Est Glom Filt Rate - Afr Amer 30 mL/min (>60); Globulin 3.4 g/dL (2.2-4.2); Glucose 93 mg/dL (74-106); Potassium 4.7 mmol/L (3.5-5.1); Protein, Total 6.7 g/dL (6.4-8.2); Sodium Level 138 mmol/L (136-145); Thyroid Stim Hormone (TSH) 0.16 uIU/mL (0.358-3.74)
== END ==
LOC: POLAB3 13:05
PROVIDERS: Family Provider Family Medicine Geriatric Medicine; PCP Family Medicine Geriatric Medicine; Visit Provider Family Medicine Geriatric Medicine
DX: E11.9 Type 2 diabetes mellitus without complications (principal); E55.9 Vitamin D deficiency, unspecified; I10 Essential (primary) hypertension
CPT/HCPCS: 36415; 80053; 82306; 84443; 85025

== ENCOUNTER → 2018-09-10 15:59 | Outpatient (CLI) | payer MEDICARE, SELFPAY | PROVIDERS: Family Provider Family Medicine Geriatric Medicine; PCP Family Medicine Geriatric Medicine; Visit Provider Family Medicine Geriatric Medicine | DX: E03.9 Hypothyroidism, unspecified (principal) ==

== ENCOUNTER 2018-10-27 15:32 | Emergency (ER) | payer MEDICARE, SELFPAY ==
[2018-10-27 15:33] VITALS: BP 153/83; PULSE 64; RESP 16; TEMP 36.6; O2SAT 98; BMI 31.7
--- NOTE | 2018-10-27 15:52 | ED.RN ---
PT REPORTS HAVING CHEST PAIN YESTERDAY, DENIES HAVING ANY PAIN NOW. RESPIRATORY CALLED FOR EKG.
[2018-10-27 16:04] VITALS: BP 161/82; PULSE 62; RESP 18; O2SAT 97
--- NOTE | 2018-10-27 16:06 | CT_ITS ---
STUDY: CT BRAIN WITHOUT CONTRAST REASON FOR EXAM: Female, 73 years old. Somnolent and confused. History of breast cancer. RADIATION DOSAGE (If Supplied By Facility): CTDIvol = ( 60.81 ) mGy, DLP = ( 1044.28 ) mGycm TECHNIQUE: Transaxial CT imaging of the brain was performed without administration of intravenous contrast material. Individualized dose optimization techniques were used for this CT. COMPARISON: None. FINDINGS: Normal soft tissue structures. Normal calvarium. Normal size ventricles and extra-axial spaces for the patient's age. There are minimal areas of decreased attenuation within the white matter tracts of the supratentorial brain, consistent with microvascular disease changes. Normal basal ganglia and thalami. Normal brainstem. Normal cerebellum. There is no intracranial hemorrhage. There are no findings of an acute ischemic infarction. Normal visualized paranasal sinuses. CT/Brain/Head without Contrast IMPRESSION: Normal unenhanced CT scan of the brain for age. Negative for hemorrhage, hematoma or mass density. Negative for demarcation of a new nonhemorrhagic infarct zone. Electronically Signed: Jessica Diaz MD at 17:15 EST , Service support ,
--- NOTE | 2018-10-27 16:06 | RAD_ITS ---
STUDY: X-RAY CHEST REASON FOR EXAM: Female, 73 years old. Chest pain TECHNIQUE: Single AP portable view of the chest. COMPARISON: 02/08/2018 FINDINGS: There is hyperinflation of the lungs consistent with chronic obstructive lung disease (COPD). No acute airspace disease. There is mild cardiac enlargement. Normal mediastinum and ciro. Normal visualized pulmonary arteries. There is atherosclerotic tortuosity of the aortic arch and descending thoracic aorta. Normal visualized thoracic spine. Normal visualized ribs, clavicles, and shoulders. There is no demonstrated abnormality of the visualized soft tissue structures of the upper abdomen. RAD/Chest 1 View (Portable) IMPRESSION: No acute findings Electronically Signed: Harrison Vasquez DO at 16:34 EST Tel , Service support ,
--- NOTE | 2018-10-27 16:11 | ED.DCSUM_ITS ---
- ER Visit Summary Date of Service: 10/27/18 Chief Complaint: Mental status change History of Present Illness: The patient is a 73 F history of anemia, CLL, prior bilateral breast CA, diabetes, hypertension, renal insufficiency. Family states that patient slept excessively from yesterday of the day. They try to wake her up she was awakening they broke her door down and woke her up today. He states she seemed confused when they woke her up. She denies any recent illness such as nausea, vomiting, diarrhea or fever. No recent falls. No fever. No dysuria. According to family she is also had a headache for the last 2 days.. They deny her being on any blood thinners. Physical Examination: Well-appearing older female. Vital signs are stable. She is afebrile. She does not look septic or toxic. HEENT exam no signs of trauma. Pupils round reactive light. Dry mixed membranes. No facial droop. Normal speech. Neck nontender. No lymphadenopathy. No meningismus. Lungs clear to auscultation bilaterally. No rales, rhonchi or wheezing. Heart regular rhythm no murmur. Chest wall nontender. Abdomen soft nontender, nondistended, normal bowel sounds, no peritoneal signs. Patient is moving all 4 extremities. Nontender. No edema. Neurologically currently she is awake alert. Following commands. Answering questions. NIH score is 0. Fingertip to nose within normal limits. She can lift either leg off the bed. She has normal vice president safety strength 5 out of 5 bilaterally. And dorsi and plantar flexion are normal. Patient knows day, month, upcoming holiday from it, year and president. She knows where she is at. Currently she does not seem confused at all.. Test Results: CBC shows a white count 18.1 with hemoglobin 10 hematocrit 32 and no bands. Patient has a history of CLL and has had multiple elevated white blood cell counts. She has no other signs of infection. No fever her urine and chest x-ray are negative. Neuro exam is unremarkable. Electrolytes show a gap of 10 glucose 123 BUN 33 creatinine 1.79. UA was completely normal. EKG sinus rhythm rate of 60 with no acute abnormality. Chest x-ray cardiomegaly but no acute process read both myself and the radiologist and CT of her brain shows no acute abnormality. Chronic changes read by radiologist and reviewed by me. Emergency Department Course and Treatment: Repeat exam patient is doing well at 1750. No change. She still awake and alert with no focal motor deficits. I discussed all test results with her and the family and she will be discharged home. Follow-up with primary care physician. Return if worse. Treatment Plan: Discharge home. Follow-up with PCP. Return if worse. Fluids and rest. Disposition: Discharge Impression: Transient mental status change resolved. Renal insufficiency. History of CLL This note was generated with [employer] dictation software. It may contain incorrect words, spelling, and punctuation that were not noted in review of the chart prior to signing ED Disposition - Plan for ED Patient: Chief Complaint: Confusion Referrals: Jorge Linares Chi, MD [Primary Care Provider] -
[2018-10-27] MEDS: 0.9% Normal Saline 1,000 ML 999 ML IV (16:34)
[2018-10-27 16:44] LABS: Absolute Lymphocyte Count 1.44 X10^3/ul (0.83-4.51); Absolute Neutrophil Count 15.6 X10^3/uL (2.0-7.7); Basophil# 0.01 X10^3/uL; Basophil% 0.1 % (0-1); Hematocrit 32.6 % (37-47); Hemoglobin 10.4 g/dl (12.0-15.0); Lymphocyte # 1.44 X10^3/ul (4.0); Lymphocyte % 7.9 % (19-41); Mean Corp Hgb Conc 31.9 g/gl (32-36); Mean Corpuscular Hgb 28.4 pg (27.0-32.0); Mean Corpuscular Volume 89.1 fL (81-99); Mean Platelet Vol. 11.3 fl (6.2-12.0); Monocyte# 0.99 X10^3/uL; Monocyte% 5.5 % (0-10); Neutrophil # 15.62 X10^3/uL (2.7-7.7); Neutrophil % 86.2 % (47-70); POSITIVE COUNT NO; POSITIVE DIFFERENTIAL NO; POSITIVE MORPHOLOGY NO; Platelet Count 265 K/mm3 (150-450); RBC Distribution Width CV 17.3 % (11.6-14.6); RBC Distribution Width SD 56.6 fl (35.1-43.9); Red Blood Count 3.66 M/mm3 (4.2-5.4); White Blood Count 18.1 K/mm3 (4.4-11.0)
[2018-10-27 16:51] LABS: Anion Gap 10 (5-15); BUN 33 mg/dL (7-18); BUN/Creat Ratio 18.4 RATIO (10-20); Calcium,Total 8.6 mg/dL (8.5-10.1); Chloride 112 mmol/L (98-107); Creatinine, Serum 1.79 mg/dL (0.55-1.02); EST Glomerular Filtration Rate 29 mL/min (>60); Est Glom Filt Rate - Afr Amer 36 mL/min (>60); Estimated Creatinine Clearance 21.81 ml/min; Glucose 123 mg/dL (74-106); Potassium 4.2 mmol/L (3.5-5.1); Sodium Level 145 mmol/L (136-145)
[2018-10-27 17:09] LABS: Mucous, Urine 0 SEEN /hpf (<or=2+); Red Blood Cells-Urine 0 SEEN /hpf (0-5); White Blood Cells 0 SEEN /hpf (0-5)
[2018-10-27 17:11] LABS: Color, Urine Yellow (Yellow); Glucose, Dipstick Normal (Normal); Ketone-Dipstick Negative (Negative); Leukocyte Esterase-Dipstick Negative /ul (Negative); Nitrite-Dipstick Negative (Negative); Occult Blood-Urine Negative /ul (Negative); Protein-Dipstick Negative (Negative); Specific Gravity, Urine 1.015 (1.002-1.030); Urine Bilirubin Dipstick Negative (Negative); Urine Clarity Sl. Cloudy (Clear); Urine Urobilinogen Normal (Normal)
[2018-10-27 17:21] LABS: Bacteria RARE /hpf (None Seen); Squamous Epithelial Cells - UA 0-5 SEEN /hpf (5-10)
--- NOTE | 2018-10-27 17:55 | ED.DEP ---
ED Disposition - Plan for ED Patient: Disposition: Home or Assisted Living Chief Complaint: Confusion Instructions: ED Confusion Referrals: Jorge Linares Chi, MD [Primary Care Provider] - 3-5 Days if not improving Additional Instructions: Plenty of fluids and rest. Return if feeling worse or follow-up your primary care physician and to ensure you are doing well.
[2018-10-27 18:20] VITALS: BP 171/90; PULSE 61; RESP 16; O2SAT 95
--- NOTE | 2018-10-27 18:21 | ED.RN ---
REVIEWED D/C INSTRUCTIONS, FOLLOW UP CARE, AND S/S THAT WOULD WARRANT A RETURN TO THE ED WITH PT. PT VERBALIZED AN UNDERSTANDING AND DENIES FURTHER QUESTIONS FOR THIS RN. PT SKIN P/W/D, RESP EVEN AND UNLABORED, PT A&O X 3, NO DISTRESS NOTED. PT AMBULATED OUT OF ED, GAIT STEADY.
== END 2018-10-27 18:22 | disposition home or self-care (01) ==
PROVIDERS: Emergency Provider Emergency Medicine; Family Provider Family Medicine Geriatric Medicine; PCP Family Medicine Geriatric Medicine
DX: R41.82 Altered mental status, unspecified (principal); N28.9 Disorder of kidney and ureter, unspecified; D64.9 Anemia, unspecified; I10 Essential (primary) hypertension; E11.9 Type 2 diabetes mellitus without complications; Z85.3 Personal history of malignant neoplasm of breast; Z85.6 Personal history of leukemia; Z79.899 Other long term (current) drug therapy
CPT/HCPCS: 70450; 71045; 80048; 81001; 85025; 93005; 96360; 96361; 99284; J7030; A4216

== ENCOUNTER → 2019-04-02 12:52 | Outpatient (CLI) | payer MEDICARE, SELFPAY ==
[2019-03-28 14:17] VITALS: BMI 30.7
[2019-04-02 13:19] LABS: Absolute Lymphocyte Count 2.46 X10^3/ul (0.83-4.51); Absolute Neutrophil Count 4.6 X10^3/uL (2.0-7.7); Basophil% 1.1 % (0-1); Eosinophil# 0.76 X10^3/uL; Eosinophils% 8.6 % (0-5); Hemoglobin 11.8 g/dl (12.0-15.0); Lymphocyte # 2.46 X10^3/ul (4.0); Lymphocyte % 27.9 % (19-41); Mean Corp Hgb Conc 32.8 g/gl (32-36); Mean Corpuscular Hgb 28.7 pg (27.0-32.0); Mean Corpuscular Volume 87.6 fL (81-99); Mean Platelet Vol. 11.6 fl (6.2-12.0); Monocyte# 0.84 X10^3/uL; Monocyte% 9.5 % (0-10); Neutrophil # 4.61 X10^3/uL (2.7-7.7); Neutrophil % 52.2 % (47-70); POSITIVE COUNT NO; POSITIVE DIFFERENTIAL NO; POSITIVE MORPHOLOGY NO; Platelet Count 213 K/mm3 (150-450); RBC Distribution Width CV 14.5 % (11.6-14.6); RBC Distribution Width SD 46.3 fl (35.1-43.9); Red Blood Count 4.11 M/mm3 (4.2-5.4); White Blood Count 8.8 K/mm3 (4.4-11.0)
[2019-04-02 13:39] LABS: AST(SGOT) 18 U/L (15-37); Alanine Aminotransfer ALT/SGPT 27 U/L (13-56); Albumin, Serum 3.3 g/dL (3.2-5.0); Alkaline Phosphatase 75 U/L (45-117); Anion Gap 9 (5-15); BUN 31 mg/dL (7-18); Bilirubin, Direct 0.25 mg/dL (0.00-0.30); Calcium,Total 8.4 mg/dL (8.5-10.1); Chloride 110 mmol/L (98-107); Cholesterol 147 mg/dL (200); Creatinine, Serum 2.07 mg/dL (0.55-1.02); EST Glomerular Filtration Rate 25 mL/min (>60); Est Glom Filt Rate - Afr Amer 30 mL/min (>60); Globulin 3.1 g/dL (2.2-4.2); Glucose 104 mg/dL (74-106); High Density Lipoprotein 30 mg/dL; Potassium 4.4 mmol/L (3.5-5.1); Protein, Total 6.4 g/dL (6.4-8.2); Sodium Level 145 mmol/L (136-145); Triglycerides 441 mg/dL
== END ==
PROVIDERS: PCP Family Medicine; Referring Provider Internal Medicine Cardiovascular Disease; Visit Provider Internal Medicine Cardiovascular Disease
DX: I51.9 Heart disease, unspecified (principal); G47.33 Obstructive sleep apnea (adult) (pediatric); E11.9 Type 2 diabetes mellitus without complications; E78.5 Hyperlipidemia, unspecified
CPT/HCPCS: 36415; 80048; 80061; 80076; 85025

== ENCOUNTER → 2019-04-18 12:42 | Outpatient (CLI) | payer MEDICARE, SELFPAY ==
[2019-03-28 14:17] VITALS: BMI 30.7
--- NOTE | 2019-04-18 12:46 | ECHOD_ITS ---
Reason For Study: DYSPNEA/SOB Procedure This was a 2D Doppler, Color Flow transthoracic echocardiogram. Myocardial strain analysis was performed in this exam to aid in the assessment of cardiac function. Exam performed in department. Left Ventricle Mildly dilated left ventricle. The estimated ejection fraction is 55 %. Stage 1 diastolic dysfunction. There is mild global hypokinesis of the left ventricle. Right Ventricle Normal size and thickness. Normal systolic function. Atria Normal left atrium. Normal right atrium. Normal atrial septum. Mitral Valve The mitral valve is structurally normal. No prolapse or stenosis seen. Trivial mitral valve insufficiency. Tricuspid Valve Normal tricuspid valve. Trivial tricuspid valve insufficiency. Right ventricular systolic pressure estimated to be 26 mmHg. Aortic Valve Trisinus/trileaflet aortic valve. Mild diffuse aortic valve thickening. Mild (1+) aortic valve insufficiency. Pulmonic Valve Normal pulmonic valve. Trivial pulmonic valve insufficiency. Great Vessels Normal aortic root. Normal arch. Normal inferior vena cava. Inferior vena cava collapse with sniff. Pericardium/Pleural No pericardial effusion. MMode/2D Measurements & Calculations LVIDd: 5.1 cm IVSd: 0.95 cm Ao root diam: 3.8 cm LVIDs: 3.8 cm LVPWd: 0.95 cm RVDd: 3.3 cm FS: 24.6 % LAV(MOD-bp): 52.2 ml LVAd ap4: 29.1 cm2 SV(MOD-sp4): 50.5 ml LAV(MOD-bp) Indexed: 30.4 ml/m2 EDV(MOD-sp4): 93.0 ml LAV(MOD-sp2): 50.2 ml EDV(sp4-el): 96.9 ml LAV(MOD-sp4): 49.5 ml LVAs ap4: 17.8 cm2 ESV(MOD-sp4): 42.5 ml ESV(sp4-el): 41.5 ml EF(MOD-sp4): 54.3 % EF(sp4-el): 57.1 % SV(sp4-el): 55.4 ml LA A4 area: 18.7 cm2 LA dimension(2D): 3.8 cm RA A4 area: 16.5 cm2 Time Measurements MV dec time: 0.48 sec Doppler Measurements & Calculations MV E max marino: 84.8 cm/sec Lat Peak E' Marino: 6.7 cm/sec Med Peak E' Marino: 5.5 cm/sec MV A max marino: 105.8 cm/sec E/E' lat: 12.7 E/E' med: 15.4 MV E/A: 0.80 Ao V2 max: 168.2 cm/sec AI max marino: 404.8 cm/sec LV V1 max: 92.5 cm/sec Ao max P.3 mmHg AI max P.6 mmHg LV V1 max P.4 mmHg AI dec slope: 187.9 cm/sec2 AI P1/2t: 631.2 msec PA V2 max: 90.0 cm/sec PI end-d marino: 85.0 cm/sec TR max marino: 232.3 cm/sec TR max P.6 mmHg Interpretation Summary Mildly dilated left ventricle. The estimated ejection fraction is 55 %. Stage 1 diastolic dysfunction. There is mild global hypokinesis of the left ventricle. Trivial mitral valve insufficiency. Trivial tricuspid valve insufficiency. Right ventricular systolic pressure estimated to be 26 mmHg. Mild (1+) aortic valve insufficiency. Compared to echo report dated 02/12/2018, no appreciable changes noted. Ordering Physician: Rustam Joseph Referring Physician: MAULIK CRUZ Performed By: Casandra Cao RDCS
== END ==
PROVIDERS: PCP Family Medicine; Referring Provider Internal Medicine Cardiovascular Disease; Visit Provider Internal Medicine Cardiovascular Disease
DX: G47.33 Obstructive sleep apnea (adult) (pediatric) (principal)
CPT/HCPCS: 93306

== ENCOUNTER → 2019-04-23 10:11 | Outpatient (CLI) | payer MEDICARE, SELFPAY ==
[2019-03-28 14:17] VITALS: BMI 30.7
--- NOTE | 2019-04-23 10:14 | STEWCON_ITS ---
Reason For Study: Dyspnea/SOB Stress Results Protocol: Modified Attila Protocol Maximum Predicted HR: 145 bpm Target HR: 123 bpm % Maximum Predicted HR: 69 % DurationHeart Rate Stage (mm:ss) (bpm) BP Comment BASELINE 63 90/602 CC Definity Stage 0 3:00 83 110/60 Stage 1/2 3:00 90 112/52 Stage 1 0:51 100 / Leg Discomfort, SOB, 1 CC definity Recovery 73 102/62 Stress Duration: 6:51 mm:ss Maximum Stress HR: 100 bpm Baseline Echocardiogram Findings The estimated ejection fraction is 65 %. Stress Echo Wall motion Data Resting WM Intermediate WM Stress WM Resting Wall Motion Wall Motion Stress No regional wall motion No regional wall motion abnormalities noted. abnormalities noted. EKG Data The baseline ECG displays normal sinus rhythm. Interpretation Summary The estimated ejection fraction is 65 %. Normal, adequate, notify Attila treadmill echocardiogram. Negative for ischemia by EKG and echocardiographic criteria. No anginal symptoms noted. Rare PVC noted. Appropriate blood pressure response to exercise. Below average exercise capacity for age. Although the patient did not reach target heart rate per se, she did have an adequate rate pressure product of over 10,000. Decreased sensitivity due to poor echo windows requiring Definity agent. Final LVEF is 75%. Test terminated due to dyspnea and leg fatigue. No complications. The study was technically difficult. Contrast injection was performed. Ordering Physician: Rsutam Joseph MD Referring Physician: Rustam Joseph Performed By: Maryse Purdy, RAQUEL, RVT
== END ==
LOC: CVS 10:13
PROVIDERS: PCP Family Medicine; Referring Provider Internal Medicine Cardiovascular Disease; Visit Provider Internal Medicine Cardiovascular Disease
DX: I77.810 Thoracic aortic ectasia (principal); R06.09 Other forms of dyspnea
CPT/HCPCS: 93017; 93350; Q9957; A4216; C8928

== ENCOUNTER → 2019-06-23 12:13 | Outpatient (CLI) | payer MEDICARE, SELFPAY ==
[2019-03-28 14:17] VITALS: BMI 30.7
[2019-06-23 13:16] LABS: AST(SGOT) 21 U/L (15-37); Alanine Aminotransfer ALT/SGPT 35 U/L (13-56); Albumin, Serum 3.5 g/dL (3.2-5.0); Alkaline Phosphatase 119 U/L (45-117); Bilirubin, Direct 0.17 mg/dL (0.00-0.30); Cholesterol 119 mg/dL (200); Globulin 3.3 g/dL (2.2-4.2); High Density Lipoprotein 36 mg/dL; Protein, Total 6.8 g/dL (6.4-8.2); Triglycerides 165 mg/dL; Very Low Density Lipoprotein 33 mg/dL (5-40)
== END ==
PROVIDERS: PCP Family Medicine; Referring Provider Internal Medicine Cardiovascular Disease; Visit Provider Internal Medicine Cardiovascular Disease
DX: E78.5 Hyperlipidemia, unspecified (principal)
CPT/HCPCS: 36415; 80061; 80076

== ENCOUNTER → 2019-11-28 14:17 | Outpatient (CLI) | payer MEDICARE, SELFPAY ==
[2019-10-20 14:58] VITALS: BMI 27.1
--- NOTE | 2019-11-28 14:17 | FLU_PTH ---
PATIENT: JOYCE DAUGHERTY LOC: [facility] U#:[id number] AGE/SX: 80/F ROOM: RE11/28/[address]: Dr. Savannah Marin MD : 1945 BED: DIS: SPEC #: [id number] RECD: 11/28/19 17:00 STATUS: SHANTA REAdelaide #: [id number] CESAR: 11/28/19 14:[address]: Savannah Marin DEPT: CYTOLOGY RECD BY: Isauro Parsons ENTERED: 12/01/19 11:42 SP TYPE: Fluid OTHR DR: Dr. Alexandro Jang MD Tissues: A - Thyroid gland, NOS B - Thyroid gland, NOS Procedures: Special Stain Group II Surgery Specimen Level IV Cytospin Fluid Cytology Other Comments: @ Specimen number changed from [id number] to [id number] @ on 12/01/19 at 1321 by RGOOD. HEADER OPERATION: Ultrasound-guided fine needle aspiration of left thyroid PRE-OP DIAGNOSIS: Left thyroid nodule TISSUE SUBMITTED: A - FNA left thyroid for cytology, B - FNA left thyroid slides x6 DIAGNOSIS CYTOLOGY A. Left thyroid nodule fluid, ultrasound-guided FNA (cytospin and cell block): Acellular specimen. See comment. B. Left thyroid nodule, ultrasound-guided FNA (smears): Nondiagnostic specimen. See comment. SJ:israel 12/02/19 COMMENT A. The specimen entirely consists of blood. Follicular cells are not identified. B. The specimen consists of rare follicular cells and diluted colloid. The specimen is nondiagnostic due to lack of adequate number of follicular cells. Correlation with clinical, radiologic findings and appropriate follow up are necessary. Rebiopsy is suggested if clinically indicated. CYTOLOGY STUDY Slides are reviewed. CYTOLOGY GROSS A - Received is 35 ml of hazy colorless fluid labeled with the patient's name and and designated per the requisition as left thyroid. Submitted for cytology preparation including cell block. B - Received are six smears labeled with the patient's name and designated per the requisition as left thyroid. Submitted for staining. / israel 12/01/19 TC: Cannot code CPT: 80552, 62285, 97691
== END ==
LOC: LABSPEC 12-01 11:57
PROVIDERS: PCP Family Medicine; Referring Provider Surgery; Visit Provider Surgery
DX: E04.1 Nontoxic single thyroid nodule (principal)
CPT/HCPCS: 88108; 88161; 88305; 88313

== ENCOUNTER → 2020-06-09 14:39 | Outpatient (CLI) | payer MEDICARE, SELFPAY ==
[2020-06-01 14:56] VITALS: BMI 26.6
--- NOTE | 2020-06-09 14:42 | CT_ITS ---
STUDY: CT CHEST WITH CONTRAST REASON FOR EXAM: Female, 75 years old. RADIATION DOSAGE (If Supplied By Facility): CTDIvol = ( 11.395 ) mGy, DLP = ( 337.49 ) mGycm TECHNIQUE: Transaxial imaging was performed following intravenous administration of ml of contrast material. Coronal and sagittal reformatted images were created. Individualized dose optimization techniques were used for this CT. COMPARISON: None FINDINGS: There are no pulmonary infiltrates or pleural effusions. There is dependent atelectasis noted in the lung bases. There is a stable bulla in the right upper lobe. There is no pneumothorax. The heart and pericardium are within normal limits. There is no thoracic lymphadenopathy. There is a stable 4.5 cm aneurysm of the ascending aorta. The aortic arch and descending thoracic aorta are normal in caliber. There is no evidence of pulmonary embolus. Images through the upper abdomen demonstrate splenic granulomata. There are no destructive osseous lesions. There are degenerative changes noted in the spine. Again noted are postsurgical changes from a right mastectomy. CT/Chest WITH Contrast IMPRESSION: Stable 4.5 cm aneurysm of the ascending aorta. Normal caliber aortic arch and descending thoracic aorta. No pulmonary infiltrates or pleural effusions. Electronically Signed: Joshua Alva, at 19:58 EDT Tel , Service support ,
[2020-06-09 15:25] LABS: CREATININE FINGERSTICK 1.2 mg/dL (0.55-1.02)
== END ==
LOC: CT 14:42
PROVIDERS: PCP Family Medicine; Referring Provider Internal Medicine Cardiovascular Disease; Visit Provider Internal Medicine Cardiovascular Disease
DX: I71.2 Thoracic aortic aneurysm, without rupture (principal)
CPT/HCPCS: 71260; Q9967

== ENCOUNTER → 2020-06-22 14:02 | Outpatient (CLI) | payer MEDICARE, SELFPAY ==
[2020-06-01 14:56] VITALS: BMI 26.6
--- NOTE | 2020-06-22 14:04 | ECHOD_ITS ---
Reason For Study: Valve eval Procedure This was a 2D Doppler, Color Flow transthoracic echocardiogram. Exam performed in department. Left Ventricle Normal size and thickness. The estimated ejection fraction is 55 %. Stage 1 diastolic dysfunction. The global longitudinal strain = -17.2% (abnormal). There is borderline global hypokinesis of the left ventricle. Right Ventricle Normal size and thickness. Normal systolic function. Atria Normal left atrium. Normal right atrium. Normal atrial septum. Mitral Valve The mitral valve is structurally normal. No prolapse or stenosis seen. Tricuspid Valve Normal tricuspid valve. Trivial tricuspid valve insufficiency. Unable to estimate RV systolic pressure due to insufficient tricuspid regurgitant envelope. Aortic Valve Trisinus/trileaflet aortic valve. Mild diffuse aortic valve thickening. Mild (1+) aortic valve insufficiency. Pulmonic Valve Normal pulmonic valve. Great Vessels Normal aortic root. Normal arch. Normal inferior vena cava. Pericardium/Pleural No pericardial effusion. MMode/2D Measurements & Calculations LVIDd: 4.0 cm IVSd: 0.99 cm Ao root diam: 3.8 cm LVIDs: 3.4 cm LVPWd: 1.3 cm LA dimension: 3.6 cm RVDd: 2.9 cm FS: 15.4 % LAV(MOD-bp): 41.6 ml LA A4 area: 15.4 cm2 RA A4 area: 15.1 cm2 LAV(MOD-bp) Indexed: 28.9 ml/m2 LAV(MOD-sp2): 47.6 ml LAV(MOD-sp4): 36.7 ml Time Measurements MV dec time: 0.38 sec Doppler Measurements & Calculations MV E max marino: 60.9 cm/sec Lat Peak E' Marino: 5.1 cm/sec Med Peak E' Marino: 4.6 cm/sec MV A max marino: 94.9 cm/sec E/E' lat: 12.0 E/E' med: 13.3 MV E/A: 0.64 MV V2 max: 104.9 cm/sec MV P1/2t max marino: 57.4 cm/sec Ao V2 max: 137.5 cm/sec MV max P.4 mmHg MV P1/2t: 117.5 msec Ao max P.6 mmHg MV V2 mean: 47.2 cm/sec MV dec slope: 143.0 cm/sec2 Ao V2 mean: 91.9 cm/sec MV mean P.1 mmHg MVA(P1/2t): 1.9 cm2 Ao mean P.9 mmHg MV V2 VTI: 28.5 cm Ao V2 VTI: 30.6 cm AI max marino: 416.5 cm/sec LV V1 max: 91.3 cm/sec PA V2 max: 71.3 cm/sec AI max P.6 mmHg LV V1 max P.3 mmHg LV V1 mean P.9 mmHg AI dec slope: 176.7 cm/sec2 LV V1 mean: 65.5 cm/sec AI P1/2t: 690.2 msec LV V1 VTI: 21.1 cm Interpretation Summary The estimated ejection fraction is 55 %. Stage 1 diastolic dysfunction. There is borderline global hypokinesis of the left ventricle. Trivial tricuspid valve insufficiency. Unable to estimate RV systolic pressure due to insufficient tricuspid regurgitant envelope. Mild (1+) aortic valve insufficiency. Compared echo report dated 04/18/2019, no appreciable changes noted. The global longitudinal strain = -17.2% (abnormal). Ordering Physician: Rustam Joseph Referring Physician: Alexandro Jang Performed By: Basil Atwood RCS
== END ==
LOC: CVS 14:04
PROVIDERS: PCP Family Medicine; Referring Provider Internal Medicine Cardiovascular Disease; Visit Provider Internal Medicine Cardiovascular Disease
DX: I71.2 Thoracic aortic aneurysm, without rupture (principal)
CPT/HCPCS: 93306

== ENCOUNTER → 2020-06-29 10:22 | Outpatient (CLI) | payer MEDICARE, SELFPAY ==
[2020-06-01 14:56] VITALS: BMI 26.6
--- NOTE | 2020-06-29 10:25 | STE_ITS ---
Reason For Study: PRE-OP Stress Results Protocol: Dobutatmine Stress Echo Maximum Predicted HR: 144 bpm Target HR: 122 bpm % Maximum Predicted HR: 90 % DurationHeart Rate Stage (mm:ss) (bpm) BP Dose Comment BASELINE 59 121/72 DSE- 10 MCG 3:40 63 117/6310.00NO SX DSE- 20 MCG 3:10 80 117/5920.00NO SX DSE- 30 MCG 3:21 103 130/5730.00ATROPINE 0.25 MG SIVP GIVEN @ 1112, NO SX DSE- 40 MCG 3:10 129 118/9440.00ATROPINE 0.25 MG IVP GIVEN @ 1115, NO SX RECOVERY 82 95/50 DENIES COMPLAINT Stress Duration: 13:21 mm:ss Maximum Stress HR: 129 bpm Baseline Echocardiogram Findings The estimated ejection fraction is 55 %. Stress Echo Wall motion Data Resting WM Intermediate WM Stress WM Resting Wall Motion Wall Motion Stress No regional wall motion No regional wall motion abnormalities noted. abnormalities noted. EKG Data The baseline ECG displays normal sinus rhythm. The patient was titrated from 10 mcg to a maximum of 40 mcg of dobutamine during the stress. The maximum heart rate attained was 129 beats per minute. This was 89% of maximum predicted heart rate. During dobutamine infusion, there were no ST or T wave changes noted to suggest ischemia. No clinical angina was noted. Interpretation Summary The estimated ejection fraction is 55 %. Normal, adequate, dobutamine echocardiogram. Negative for ischemia by EKG and echocardiographic criteria. No anginal symptoms noted. Rare PVCs noted. Appropriate blood pressure response to dobutamine. Test terminated due to the attainment target heart rate. Final LVEF is 75%. Patient tolerated procedure well. No complications. Ordering Physician: Rustam Joseph Referring Physician: Rustam Joseph Performed By: Basil Atwood RCS
[2020-06-29 13:29] LABS: AST(SGOT) 17 U/L (15-37); Alanine Aminotransfer ALT/SGPT 19 U/L (13-56); Albumin, Serum 3.6 g/dL (3.2-5.0); Alkaline Phosphatase 52 U/L (45-117); Bilirubin, Direct 0.15 mg/dL (0.00-0.30); Cholesterol 146 mg/dL (200); Globulin 2.8 g/dL (2.2-4.2); High Density Lipoprotein 41 mg/dL; Protein, Total 6.4 g/dL (6.4-8.2); Triglycerides 222 mg/dL; Very Low Density Lipoprotein 44 mg/dL (5-40)
== END ==
LOC: CVS 10:25
PROVIDERS: PCP Family Medicine; Referring Provider Internal Medicine Cardiovascular Disease; Visit Provider Internal Medicine Cardiovascular Disease
DX: Z01.810 Encounter for preprocedural cardiovascular examination (principal); E78.5 Hyperlipidemia, unspecified; R06.09 Other forms of dyspnea
CPT/HCPCS: 36415; 80061; 80076; 93017; 93350; J7040; A4216

== ENCOUNTER 2024-02-10 15:35 | Emergency (ER) | payer MEDICARE, SELFPAY ==
[2024-02-10 15:35] VITALS: BP 149/82; PULSE 73; RESP 16; TEMP 36.6; O2SAT 98; BMI 28.8
--- NOTE | 2024-02-10 15:55 | EX.ED.DYSGE1 ---
HPI History of Present Illness Chief Complaint: Abd Pain Informant: patient and family Narrative Narrative: 79-year-old female presenting to the emergency room with a chief complaint of diarrhea and nausea. Family and patient reports that on 02 February she was seen at [facility]. There she had a CT scan of her abdomen pelvis, EKG, troponins, and blood work that was reported to be negative. Family states her symptoms started several days before that ED visit. She continues to have diarrhea whenever she goes to eat or drink. They states she has not had any vomiting but does note nausea and their concern is for dehydration/nutrition. No reported fevers or rashes. No blood in the stool. She has had prior cholecystectomy. No history of colitis or diverticulitis. Patient points to her epigastric region as the source of the abdominal discomfort. [facility] Medical History (Updated 02/10/24 @ 18:[address] Rustam Tristan, ) Abnormal chest CT Abnormal pulmonary function test Acromioclavicular arthrosis Arthritis Asthma Benign essential hypertension Biceps tendinitis on right Breast cancer Chronic low back pain Chronic myelocytic leukemia CKD (chronic kidney disease) stage 3, GFR 30-59 ml/min Diabetes mellitus, type 2 Diastolic dysfunction Dilated aortic root VELEZ (dyspnea on exertion) GERD (gastroesophageal reflux disease) Greater trochanteric bursitis History of leukemia Hyperlipidemia Hypertension Hypothyroidism IBS (irritable bowel syndrome) Knee osteoarthritis Left knee pain Lumbar back pain Lumbar disc disorder Medial meniscus tear Nonrheumatic aortic valve insufficiency Obesity (BMI 30.0-34.9) TATI (obstructive sleep apnea) Pain of left calf Patella, chondromalacia Polyneuropathy Right femoral fracture Right knee pain Right lateral epicondylitis Right shoulder pain Sacral disorder Shoulder impingement syndrome Sprain and strain of unspecified site of knee and leg Thoracic aortic aneurysm Home Medications montelukast 10 mg tablet 10 mg PO QHS 09/08/13 [History Last Taken 08/28/14 09:00] diclofenac potassium 50 mg tablet 50 mg PO BID arthristis 10/23/17 [History Last Taken 02/15/18] calcium carbonate 600 mg PO DAILY 01/01/18 [History Last Taken Unknown] furosemide 20 mg tablet 20 mg PO DAILY 01/01/18 [History Last Taken Unknown] levomefolate Ca 3 mg-B6 35 mg-meB12 2 mg-algal oil 90.314 mg capsule 1 ea PO DAILY 01/01/18 [History Last Taken Unknown] omeprazole 40 mg capsule,delayed release 40 mg PO DAILY 01/01/18 [History Last Taken 02/15/18] metoprolol succinate 25 mg tablet,extended release 24 hr (Toprol XL) 25 mg PO QDAY 02/06/18 [History Last Taken 02/15/18] cholecalciferol (vitamin D3) 125 mcg (5,000 unit) capsule 5,000 unit PO DAILY 03/28/19 [History Last Taken Unknown] potassium chloride 20 mEq tablet,extended release(part/cryst) 20 meq PO TID 03/28/19 [History Last Taken Unknown] pregabalin 300 mg capsule 300 mg PO BID 03/28/19 [History Last Taken Unknown] sertraline 100 mg tablet 100 mg PO DAILY 10/20/19 [History Last Taken Unknown] levothyroxine 100 mcg tablet 88 mcg PO DAILY 06/01/20 [History Last Taken Unknown] magnesium 250 mg tablet 250 mg PO DAILY 06/01/20 [History Last Taken Unknown] niacinamide 500 mg tablet 500 mg PO TID 06/01/20 [History Last Taken Unknown] prednisone 50 mg tablet 50 mg PO .COMPLEX #3 tabs 06/01/20 [Rx Last Taken Unknown] rosuvastatin 10 mg tablet See Rx Instructions .Route .COMPLEX #90 tabs 01/21/23 [Rx Last Taken Unknown] potassium chloride 20 mEq tablet,extended release 20 meq PO BID 5 days #10 tabs 02/10/24 [Rx Last Taken Unknown] Allergy/AdvReac Type Severity Reaction Status Date / Time Iodinated Contrast Media Allergy Hives Verified 02/10/24 15:37 zolpidem [From Ambien] AdvReac Severe Other Verified 02/10/24 15:37 Family History Father Heart disease Mother Heart disease Sister Heart disease Surgical History debridement of seroma cavity H/O: hysterectomy History of appendectomy History of bilateral carpal tunnel release History of cholecystectomy History of left mastectomy History of lumbar spinal fusion History of partial thyroidectomy Previous back surgery S/P thyroid biopsy Social History Smoking Status: Former smoker alcohol intake: never substance use type: does not use ROS ROS ED Constitutional Constitutional ED: Denies chills, fever(s) or weight loss Eyes Eyes: Denies change in vision or diplopia ENT ENT ED: Denies ear pain, rhinorrhea or sore throat Cardiovascular Cardiovascular: Denies chest pain, orthopnea, palpitations or racing heartbeat Respiratory/Chest Respiratory/Chest: Denies cough, dyspnea or orthopnea Gastrointestinal Gastrointestinal: Reports abdominal pain, diarrhea and nausea; Denies vomiting Genitourinary Genitourinary ED: Denies dysuria, hematuria or urinary frequency Musculoskeletal Musculoskeletal: Denies arthralgias, back pain, myalgias or neck pain Integumentary Denies abscess or rash Neurologic Neurologic: Denies headache(s) or weakness Psychiatric Psychiatric: Denies anxiety, depression, suicidal ideation or suicidal thoughts Endocrine Endocrinology: Denies polydipsia, polyphagia or polyuria Allergic/Immunologic Allergic/Immunologic ED: Denies mouth swelling, tongue swelling or urticaria EXAM Physical Exam Const Vital Signs: 02/10/24 15:35 02/10/24 17:35 02/10/24 18:15 Temperature 97.8 F Temperature Source Temporal Pulse Rate 73 68 68 Respiratory Rate 16 19 H 16 Blood Pressure 149/82 H 172/92 H 171/91 H Blood Pressure Mean 104 118 117 Pulse Ox 98 96 96 Oxygen Delivery Method Room Air Room Air Room Air 02/10/24 18:20 Temperature 98 F Temperature Source Pulse Rate 66 Respiratory Rate 12 Blood Pressure 169/84 H Blood Pressure Mean 112 Pulse Ox 97 Oxygen Delivery Method Positive well nourished and well developed General Appearance ED: well developed HEENT Reports normocephalic and head/scalp atraumatic HEENT Narrative: Moist mucous membranes noted. No dry lips. Eyes PERRL and EOMs intact bilaterally Neck no lymphadenopathy, supple and no JVD Resp normal respiratory effort and clear to auscultation bilaterally Cardio regular rate, regular rhythm and no murmurs Cardio Narrative: Less than 3-second capillary refill of fingers. GI GI Narrative: Patient allows deep palpation of the abdomen. While tender in her epigastrium I would not describe any guarding or rebound. Inspection: Negative for abdominal distention Auscultation: normoactive bowel sounds Palpation: soft and tender epigastric; Negative for guarding or rebound tenderness present Back/Spine no CVA tenderness and normal ROM Extremity normal to inspection General Extremety ED: Negative for edema General Extremity: Negative for edema Neuro oriented x3 and CN's II-XII intact bilaterally Sensorium / Orientation: alert Motor Exam: strength 5/5 throughout Psych mental status grossly normal Mood & Affect: Negative for depressed or tearful Skin no rashes or lesions noted and no wounds MDM MDM MDM Narrative Medical decision making narrative: White count 6.4 with normal differential hemoglobin 14.3 platelet count 250. Calcium low at 2.9. Creatinine 1.21 with a BUN of 16. Glucose 143. Liver enzymes within normal limits and lipase is 54. Urinalysis shows no overt infection. 1+ bacteria noted 0-5 squamous cells 0-5 white cells leukocyte Estrace with 25 and nitrate is negative. She is asymptomatic. CT without oral contrast and IV contrast was obtained. I do not see any inflammatory changes in the mesentery around the colon to suggest an acute colitis. Patient received a liter of IV fluids. Patient was given potassium supplementation and will replace that over the next several days. She was encouraged to start eating. She ate 2 cookies here was unable to provide a stool specimen I can write for an outpatient stool specimen. Would recommend follow-up with primary care. Patient is noted to be hypertensive. She believes she still needs to take her hypertension medications for the day. This point patient to be discharged home family and patient are comfortable with the above plan History & Record Review Discussion w/independent historian: Patient and Family Additional record(s) reviewed:: Prior outpatient record and Prior ED visit Lab Data Attestation: I reviewed the patient's lab results. Labs: Laboratory Results - last 24 hr 02/10/24 02/10/24 15:45 16:30 WBC 6.4 RBC 4.83 Hgb 14.3 Hct 42.6 MCV 88.2 MCH 29.6 MCHC 33.6 RDW Std Deviation 48.1 H RDW Coeff of Indira 14.7 H Plt Count 250 MPV 10.7 Immature Gran % (Auto) 0.500 Neut % (Auto) 57.9 Lymph % (Auto) 31.3 [place] % (Auto) 8.6 Eos % (Auto) 0.9 Baso % (Auto) 0.8 Absolute Neuts (auto) 3.7 Absolute Lymphs (auto) 2.00 Nucleated RBC % 0 Sodium 143 Potassium 2.9 L Chloride 110 H Carbon Dioxide 26.0 Anion Gap 7 BUN 16 Creatinine 1.21 H Estim Creat Clear Calc 32.97 Est GFR (MDRD) Af Amer 55 L Est GFR (MDRD) Non-Af 46 L BUN/Creatinine Ratio 13.2 Glucose 143 H Calcium 9.2 Total Bilirubin 0.70 Direct Bilirubin 0.25 AST 20 ALT 20 Alkaline Phosphatase 46 Total Protein 7.0 Albumin 4.2 Globulin 2.8 Lipase 54 Urine Color Yellow Urine Clarity Sl. Cloudy Urine pH 6.0 Ur Specific Gray 1.020 Urine Protein 30 H Urine Glucose (UA) Normal Urine Ketones 5 H Urine Occult Blood 10 H Urine Nitrite Negative Urine Bilirubin 1 H Urine Urobilinogen 1 H Ur Leukocyte Esterase 25 H Urine RBC 0 SEEN Urine WBC 0-5 SEEN Ur Squamous Epith Cells 0-5 SEEN Calcium Oxalate Crystal 3+ Urine Bacteria 1+ Urine Mucus 0 SEEN Radiography Diagnostic Testing: Clinical Impression(s) from Imaging Studies Abdomen/Pelvis CT 02/10/24 17:15 IMPRESSION: Findings which may be consistent with nonspecific chronic inflammatory colitis involving the ascending and transverse colon without inflammatory changes at this time.. Diverticular changes of the descending and sigmoid colon without evidence for acute diverticulitis No evidence for small bowel obstruction or other acute abnormalities. Other findings as above Electronically Signed: Olvin Bradley MD at 17:50 EDT , EKG Initial EKG: Attestation: I personally reviewed and interpreted this EKG as follows: Comments: Normal sinus rhythm with ventricular rate of 62 bpm. Discharge Plan Triage Chief Complaint: Abd Pain ED Provider: Rustam Tristan Dx/Rx/DC Orders Clinical Impression: Benign essential hypertension, Acute diarrhea, Abdominal pain, Acute hypokalemia Instructions: ED Diarrhea, Unknown Cause, ED Hypokalemia Prescriptions: New potassium chloride 20 mEq tablet extended release 20 meq PO BID 5 Days Qty: 10 0RF No Action diclofenac potassium 50 mg tablet 50 mg PO BID metoprolol succinate [Toprol XL] 25 mg tablet extended release 24 hr 25 mg PO QDAY cholecalciferol (vitamin D3) 5,000 unit capsule 5,000 unit PO DAILY pregabalin 300 mg capsule 300 mg PO BID levothyroxine 100 mcg tablet 88 mcg PO DAILY sertraline 100 mg tablet 100 mg PO DAILY niacinamide 500 mg tablet 500 mg PO TID magnesium 250 mg tablet 250 mg PO DAILY prednisone 50 mg tablet 50 mg tablet 50 mg PO .COMPLEX Qty: 3 1RF Rx Instructions: 50 mg PO Take 1 tablet at 1:30 am, 1 tablet at 7:30 am, and 1 tablet at 1:30 pm on [address] @2:30 pm for dye allergy; montelukast 10 MG tablet 10 mg PO QHS Patient Comments: ALLERGIES potassium chloride 20 mEq tablet,ER particles/crystals 20 meq PO TID omeprazole 40 MG capsule,delayed release(DR/EC) 40 mg PO DAILY calcium carbonate 600 MG tablet 600 mg PO DAILY furosemide 20 MG tablet 20 mg PO DAILY [id number]-[id number] oil 1 EACH capsule 1 ea PO DAILY rosuvastatin 10 mg tablet See Rx Instructions .ROUTE .COMPLEX Qty: 90 3RF Dose Instruction: TAKE 1 TABLET BY MOUTH DAILY Rx Instructions: TAKE 1 TABLET BY MOUTH DAILY Primary Care Provider: Alexandro Jang Referrals: Alexandro Jang MD [Primary Care Provider] - 3-5 Days if not improving Activity Restrictions/Additional Instructions: Your potassium today was noted to be 2.9 which is low. I have written for some potassium supplementation over the next 5 days. This should be rechecked through your primary care doctor. You also have a prescription to bring back a stool specimen for analysis if you can provide it. I would also recommend starting to introduce solid foods into your diet and try to eat which she can. You may experience diarrhea after eating but I believe that getting nutrition started again is paramount. Disposition Disposition: Home, Self Care
[2024-02-10] MEDS: 0.9% Normal Saline (1000mL) 1,000 ML 1000 ML IV (16:02)
[2024-02-10] MEDS: Ondansetron 4 MG/2 ML Vial IV (16:02)
[2024-02-10 16:05] LABS: Absolute Neutrophil Count 3.7 X10^3/uL (2.0-7.7); Basophil# 0.05 X10^3/uL; Basophil% 0.8 % (0-1); Eosinophil# 0.06 X10^3/uL; Eosinophils% 0.9 % (0-5); Hematocrit 42.6 % (37-47); Hemoglobin 14.3 g/dL (12.0-15.0); Lymphocyte % 31.3 % (19-41); Mean Corp Hgb Conc 33.6 g/dL (32-36); Mean Corpuscular Hgb 29.6 pg (27.0-32.0); Mean Corpuscular Volume 88.2 fL (81-99); Mean Platelet Vol. 10.7 fl (6.2-12.0); Monocyte# 0.55 X10^3/uL; Monocyte% 8.6 % (0-10); NRBC Flagged by Analyzer 0 % (0-5); Neutrophil # 3.69 X10^3/uL (2.7-7.7); Neutrophil % 57.9 % (47-70); Platelet Count 250 K/mm3 (150-450); RBC Distribution Width CV 14.7 % (11.6-14.6); RBC Distribution Width SD 48.1 fl (35.1-43.9); Red Blood Count 4.83 M/mm3 (4.2-5.4); White Blood Count 6.4 K/mm3 (4.4-11.0)
[2024-02-10 16:22] LABS: AST(SGOT) 20 U/L (15-37); Alanine Aminotransfer ALT/SGPT 20 U/L (13-56); Albumin, Serum 4.2 g/dL (3.2-5.0); Alkaline Phosphatase 46 U/L (45-117); Anion Gap 7 (5-15); BUN 16 mg/dL (7-18); BUN/Creat Ratio 13.2 RATIO (10-20); Bilirubin, Direct 0.25 mg/dL (0.00-0.30); Calcium,Total 9.2 mg/dL (8.5-10.1); Chloride 110 mmol/L (98-107); Creatinine, Serum 1.21 mg/dL (0.55-1.02); EST Glomerular Filtration Rate 46 mL/min (>60); Est Glom Filt Rate - Afr Amer 55 mL/min (>60); Estimated Creatinine Clearance 32.97 ml/min; Globulin 2.8 g/dL (2.2-4.2); Glucose 143 mg/dL (74-106); Lipase 54 U/L (13-75); Potassium 2.9 mmol/L (3.5-5.1); Sodium Level 143 mmol/L (136-145)
[2024-02-10 16:42] LABS: Mucous, Urine 0 SEEN /hpf (<or=2+); Red Blood Cells-Urine 0 SEEN /hpf (0-5)
--- NOTE | 2024-02-10 16:47 | EKG12_ITS ---
Test Reason : Blood Pressure : / mmHG Vent. Rate : 062 BPM Atrial Rate : 062 BPM P-R Int : 150 ms QRS Dur : 086 ms QT Int : 466 ms P-R-T Axes : 042 -14 046 degrees QTc Int : 472 ms Normal sinus rhythm Nonspecific ST and T wave abnormality Abnormal ECG Confirmed by Carl Charles ([id number]), food editor BASILIO CURRIE ([id number]) on 02/11/2024 11:11:31 AM Referred By: Confirmed By:Carl Charles
[2024-02-10 16:48] LABS: Color, Urine Yellow (Yellow); Glucose, Dipstick Normal (Normal); Ketone-Dipstick 5 mg/dl (Negative); Leukocyte Esterase-Dipstick 25 /ul (Negative); Nitrite-Dipstick Negative (Negative); Occult Blood-Urine 10 /ul (Negative); Protein-Dipstick 30 mg/dl (Negative); Urine Clarity Sl. Cloudy (Clear); Urine Urobilinogen 1 mg/dl (Normal)
[2024-02-10 16:50] LABS: Urine Bilirubin Dipstick 1 mg/dL (Negative)
[2024-02-10 16:58] LABS: Bacteria 1+ /hpf (None Seen); Calcium Oxalate Crystals Ur 3+ /hpf (<or=2+); White Blood Cells 0-5 SEEN /hpf (0-5)
[2024-02-10 16:59] LABS: Squamous Epithelial Cells - UA 0-5 SEEN /hpf (5-10)
[2024-02-10] MEDS: Potassium Chloride 10mEq/100mL 10 MEQ/100 ML IV.SOLN. 100 MEQ IV BOLUS (17:12)
[2024-02-10] MEDS: Potassium Chloride Oral Tablet 20 MEQ 40 MEQ PO (17:13)
--- NOTE | 2024-02-10 17:15 | CT_ITS ---
STUDY: CT ABDOMEN AND PELVIS WITHOUT CONTRAST REASON FOR EXAM: Female, 79 years old. colitis RADIATION DOSAGE (If Supplied By Facility): CTDIvol = ( 6.29 ) mGy, DLP = ( 316.08 ) mGycm TECHNIQUE: Transaxial images were obtained from the dome of the diaphragm to the symphysis pubis without oral contrast, and without intravenous contrast. Sagittal and coronal images were reconstructed. Individualized dose optimization techniques were used for this CT. COMPARISON: None. FINDINGS: Probable chronic bibasilar interstitial thickening. The visualized portions of the heart are within normal limits. Normal liver. Gall bladder nonvisualized which may be consistent with prior cholecystectomy.. Tiny granulomatous calcifications within normal size spleen Normal pancreas. Normal bilateral adrenal glands. No evidence for renal obstruction. Tiny cyst in the lower pole the right kidney which will not require additional imaging. Normal visualized stomach. Normal small intestine. There is an ahaustral appearance of the ascending and proximal transverse colon with submucosal fat deposition which may be consistent with chronic inflammatory bowel disease. There is no inflammatory stranding in the fat seen at this time Diverticular changes of the descending and sigmoid colon without evidence for acute diverticulitis. The appendix is visualized and appears normal. Atherosclerotic changes of the aorta without evidence for aneurysm. Normal inferior vena cava. Normal retroperitoneum. Normal urinary bladder. Uterus not visualized status post hysterectomy Clips are seen in the left inguinal region as well as the anterior pelvic wall possibly due to prior herniorrhaphy.. Lumbar spine demonstrates degenerative changes and postop changes status post bilateral laminectomy and posterior fusion at L2-3. CT/Abdomen/Pelvis without Cont IMPRESSION: Findings which may be consistent with nonspecific chronic inflammatory colitis involving the ascending and transverse colon without inflammatory changes at this time.. Diverticular changes of the descending and sigmoid colon without evidence for acute diverticulitis No evidence for small bowel obstruction or other acute abnormalities. Other findings as above Electronically Signed: Olvin Bradley MD at 17:50 EDT ,
[2024-02-10 17:35] VITALS: BP 172/92; PULSE 68; RESP 19; O2SAT 96
[2024-02-10 18:15] VITALS: BP 171/91; PULSE 68; RESP 16; O2SAT 96
[2024-02-10 18:20] VITALS: BP 169/84; PULSE 66; RESP 12; TEMP 36.6; O2SAT 97
== END 2024-02-10 18:35 | disposition home or self-care (01) ==
PROVIDERS: Emergency Provider Emergency Medicine; PCP Family Medicine; Visit Provider Emergency Medicine
DX: R10.9 Unspecified abdominal pain (principal); I13.0 Hypertensive heart and chronic kidney disease with heart failure and stage 1 through stage 4 chronic kidney disease, or unspecified chronic kidney disease; I50.30 Unspecified diastolic (congestive) heart failure; E11.22 Type 2 diabetes mellitus with diabetic chronic kidney disease; N18.30 Chronic kidney disease, stage 3 unspecified; R19.7 Diarrhea, unspecified; E87.6 Hypokalemia; Z87.891 Personal history of nicotine dependence; Z90.49 Acquired absence of other specified parts of digestive tract; Z85.3 Personal history of malignant neoplasm of breast; E78.5 Hyperlipidemia, unspecified; K21.9 Gastro-esophageal reflux disease without esophagitis; E03.9 Hypothyroidism, unspecified; Z79.899 Other long term (current) drug therapy; Z90.12 Acquired absence of left breast and nipple
CPT/HCPCS: 74176; 80048; 80076; 81001; 83690; 85025; 93005; 96361; 96365; 96375; 99284; J7030; A4216; J2405